=== PATIENT | male | born 1960 | race African-American/Black ===

== ENCOUNTER 2016-08-05 10:28 | Emergency (ER) | payer MEDICARE, OTHER ==
[~2016-08-05] VITALS: Ht 162.6 cm; Wt 84.4 kg
[2016-08-05] MEDS ORDERED: METF-699 PO (11:08)
[2016-08-05] MEDS ORDERED: GLIP5TAB8 PO (11:08)
[2016-08-05] MEDS ORDERED: VALI5TAB PO (11:08)
[2016-08-05] MEDS ORDERED: ZANTTAB PO (11:08)
[2016-08-05] MEDS ORDERED: PLAV75TA38 PO (11:08)
[2016-08-05] MEDS ORDERED: CARV6.25 PO (11:08)
[2016-08-05] MEDS ORDERED: NITR3TA SL (11:08)
[2016-08-05] MEDS ORDERED: RANI15ELUD PO (11:08)
[2016-08-05] MEDS ORDERED: ASPI81TA21 PO (11:08)
[2016-08-05] MEDS ORDERED: TYLE325T5 PO (11:08)
[2016-08-05] MEDS ORDERED: CYCL5TA PO (11:08)
[2016-08-05] MEDS ORDERED: ISOS20TA PO (11:08)
[2016-08-05] MEDS ORDERED: PERI4TAB PO (11:08)
[2016-08-05] MEDS ORDERED: LIPI80TA PO (11:08)
[2016-08-05 12:24] LABS: ADD MORPHOLOGY? YES; BASO % 0.5 % (0.0-1.0); EOS # 0.4 K/mm3 (0.0-0.50); EOS % 3.7 % (0.0-3.0); LARGE UNSTAINED CELL # 0.1 K/mm3 (0.0-0.4); LARGE UNSTAINED CELL % 0.9 % (0.0-4.0); LYMPH # 2.1 K/mm3 (1.5-4.5); LYMPH % 16.9 % (24.0-44.0); MEAN CORPUSCULAR HEMOGLOBIN 21.1 pg (27.0-33.0); MEAN CORPUSCULAR HGB CONC 28.6 g/dl (32.0-36.5); MEAN CORPUSCULAR VOLUME 73.9 fl (80.0-96.0); MONO # 0.7 K/mm3 (0.0-0.8); MONO % 5.5 % (0.0-5.0); NEUTROPHILS # 8.5 K/mm3 (1.8-7.7); NEUTROPHILS % 72.5 % (36.0-66.0); PLATELET COUNT, AUTOMATED 488 k/mm3 (150-450); RED CELL DISTRIBUTION WIDTH 18.2 % (11.5-14.5); WHITE BLOOD COUNT 11.8 K/mm3 (4.0-10.0)
[2016-08-05 12:38] LABS: ANION GAP 9 MEQ/L (8-16); BLOOD UREA NITROGEN 8 MG/DL (7-18); CARBON DIOXIDE LEVEL 26 MEQ/L (21-32); CHLORIDE LEVEL 102 MEQ/L (98-107); CREATININE FOR GFR 0.73 MG/DL (0.70-1.30); GLOMERULAR FILTRATION RATE > 60.0 (>56); GLUCOSE, FASTING 75 MG/DL (70-105); POTASSIUM SERUM 4.1 MEQ/L (3.5-5.1); SODIUM LEVEL 137 MEQ/L (136-145); URIC ACID 6.6 MG/DL (3.5-7.2)
--- NOTE | 2016-08-05 12:41 | REP ---
Left lower extremity Duplex Doppler venous ultrasound: Real time compression and duplex Doppler interrogation of the left lower extremity deep venous system is performed. The left common femoral, superficial femoral and popliteal veins are fully compressible with transducer pressure and demonstrate normal spontaneous and phasic flow, without evidence of deep venous thrombosis. Impression: No evidence of deep venous thrombosis of the left lower extremity femoral popliteal venous system. Signed by Charli Somers MD 08/05/2016 12:32 P
[2016-08-05 13:14] LABS: OVALOCYTES 1+; POIKILOCYTOSIS 1+
[2016-08-05 13:15] LABS: ANISOCYTOSIS 2+; HYPOCHROMASIA 2+; MICROCYTOSIS 2+
[2016-08-05] MEDS ORDERED: ULTR50TA PO (13:59)
[2016-08-05] MEDS ORDERED: BACT800T5 PO (13:59)
[2016-08-05 14:12] VITALS: BP 118/55
== END 2016-08-05 14:14 | disposition home or self-care (01) ==
LOC: M ED 13:14
DX: M79.672 Pain in left foot (principal); M25.572 Pain in left ankle and joints of left foot; I10 Essential (primary) hypertension; E11.9 Type 2 diabetes mellitus without complications; K59.00 Constipation, unspecified; F41.9 Anxiety disorder, unspecified; Z86.73 Personal history of transient ischemic attack (TIA), and cerebral infarction without residual deficits; Z79.899 Other long term (current) drug therapy; Z79.01 Long term (current) use of anticoagulants; Z79.82 Long term (current) use of aspirin; Z79.84 Long term (current) use of oral hypoglycemic drugs; Z88.0 Allergy status to penicillin

== ENCOUNTER 2016-08-07 10:01 | Inpatient (IN) | payer MEDICARE ==
[~2016-08-07] VITALS: Ht 162.6 cm; Wt 83.0 kg
[~2016-08-07 10:01] MED LIST: ASPI81TA21 PO; BACT800T5 PO; CARV6.25 PO; CYCL5TA PO; GLIP5TAB8 PO; ISOS20TA PO; LIPI80TA PO; METF-699 PO; NITR3TA SL; PERI4TAB PO; PLAV75TA38 PO; RANI15ELUD PO; TYLE325T5 PO; ULTR50TA PO; VALI5TAB PO; ZANTTAB PO
[2016-08-07] MEDS ORDERED: PLAV75TA38 PO (10:21)
[2016-08-07] MEDS ORDERED: VALI5TAB PO (10:21)
[2016-08-07] MEDS ORDERED: LIPI80TA PO (10:21)
[2016-08-07] MEDS ORDERED: PERCOCET 5MG/325MG TAB PO ONE (12:00)
[2016-08-07] MEDS ORDERED: CLINDAMYCIN 900 MG in APPROPRIATE DILUENT 1 EA IV ONE (12:00)
--- NOTE | 2016-08-07 12:28 | REP ---
Chest two views HISTORY: S I R S Comparison: None The lungs are clear. The heart is normal in size. The pulmonary vasculature is normal in appearance. The bony structure is intact. IMPRESSION: No acute disease. Signed by Rafy Rodríguez MD 08/07/2016 12:19 P
[2016-08-07 12:41] LABS: BASO % 0.2 % (0.0-1.0); EOS # 0.4 K/mm3 (0.0-0.50); EOS % 2.4 % (0.0-3.0); LARGE UNSTAINED CELL # 0.2 K/mm3 (0.0-0.4); LARGE UNSTAINED CELL % 1.3 % (0.0-4.0); LYMPH # 2.2 K/mm3 (1.5-4.5); LYMPH % 11.8 % (24.0-44.0); MEAN CORPUSCULAR HEMOGLOBIN 21.5 pg (27.0-33.0); MEAN CORPUSCULAR HGB CONC 28.9 g/dl (32.0-36.5); MEAN CORPUSCULAR VOLUME 74.4 fl (80.0-96.0); MONO # 0.9 K/mm3 (0.0-0.8); MONO % 5.6 % (0.0-5.0); NEUTROPHILS # 13.1 K/mm3 (1.8-7.7); NEUTROPHILS % 78.7 % (36.0-66.0); PLATELET COUNT, AUTOMATED 491 k/mm3 (150-450); RED CELL DISTRIBUTION WIDTH 18.1 % (11.5-14.5); WHITE BLOOD COUNT 16.6 K/mm3 (4.0-10.0)
[2016-08-07 13:02] LABS: ALBUMIN 3.9 GM/DL (3.2-5.2); ALBUMIN/GLOBULIN RATIO 1.08 (1.00-1.93); ALKALINE PHOSPHATASE 98 U/L (45-117); ALT/SGPT 23 U/L (12-78); ANION GAP 7 MEQ/L (8-16); AST/SGOT 17 U/L (15-37); BILIRUBIN,DIRECT 0.2 MG/DL (0.0-0.2); BILIRUBIN,TOTAL 0.7 MG/DL (0.2-1.0); BLOOD UREA NITROGEN 10 MG/DL (7-18); CALCIUM LEVEL 9.1 MG/DL (8.5-10.1); CARBON DIOXIDE LEVEL 29 MEQ/L (21-32); CHLORIDE LEVEL 100 MEQ/L (98-107); CREATININE FOR GFR 1.01 MG/DL (0.70-1.30); GLOMERULAR FILTRATION RATE > 60.0 (>56); GLUCOSE, FASTING 74 MG/DL (70-105); POTASSIUM SERUM 4.1 MEQ/L (3.5-5.1); SODIUM LEVEL 136 MEQ/L (136-145); TOTAL PROTEIN 7.5 GM/DL (6.4-8.2)
--- NOTE | 2016-08-07 14:04 | REP ---
LEFT FOOT, FOUR VIEWS: HISTORY: Osteomyelitis. There is no acute fracture or dislocation. There is narrowing of the interphalangeal joint space of the first digit with associated osteophyte formation. IMPRESSION: Degenerative change as described above. Signed by Rafy Rodríguez MD 08/07/2016 02:04 P
[2016-08-07] MEDS ORDERED: ONDANSETRON 4MG/2ML VIAL (J2405) IV PRN (14:15)
[2016-08-07] MEDS ORDERED: ACETAMINOPHEN TAB 650MG DOSE (2X325MG) PO PRN (14:15)
[2016-08-07] MEDS ORDERED: ASPI325T PO (14:18)
[2016-08-07] MEDS ORDERED: BACT800T5 PO (14:18)
[2016-08-07] MEDS ORDERED: ACET-654 PO (14:18)
[2016-08-07] MEDS ORDERED: GLIP5TAB15 PO (14:18)
[2016-08-07] MEDS ORDERED: LISI10TA2 PO (14:19)
[2016-08-07] MEDS ORDERED: ALBUTEROL SULFATE 2.5 MG/0.5 ML INH NEB SOLN INH PRN (15:30)
[2016-08-07] MEDS ORDERED: DEXTROSE 50% 50 ML SYRINGE IV PRN (15:30)
[2016-08-07] MEDS ORDERED: GLUCOSE 4 GM CHEW TABLET PO PRN (15:30)
[2016-08-07] MEDS ORDERED: GLUCAGON FOR INJ 1 MG VIAL (J1610) SC PRN (15:30)
[2016-08-07] MEDS ORDERED: diazePAM 5 MG TAB PO PRN (15:45)
--- NOTE | 2016-08-07 16:48 | PHACANCOPD ---
PHARMACY VANCOMYCIN DOSING Pt Demographics Demographics Patient Age:55 , Weight: , Gender: male Adjusted Body Weight Date: 08/07/16, Adjusted Body Weight: [69.3] Kg Events Past 24 Hours Events Past 24 Hours: NO: Change in CrCl, Dialysis, Diuretic Therapy, Elevation in WBC, Fever, Other, Pending Diagnostics, Pending Procedures Vancomycin Vancomycin indication: DIABETIC FOOT Vancomycin Target Ranges: 10-20 mcg/ml Vancomycin Load Y/N: Yes Load Dose Date Time Vancomycin Load Dose: 2G Date: 08/07/16 Time: 17:00 Vancomycin Dose Date: 08/07/16. Current Vancomycin Dose: [1G q12H @05] Intermittent Dosing?: No Labs Micro Microbiology 08/07/16 Blood Culture, Received Pending 08/07/16 Blood Culture, Received Pending Creatinine Clearance Date:08/07/16. Creatinine Clearance: [67.6ML/MIN.]. Pending Labs B/C PENDING Assessment and Plan Maintaining Current Dose?: Yes Reason for dose change: No Dose Change Pharmacist Note Pharmacist Note Date: 08/07/16. Pharmacist note: Pt is a 62 y/o male pt who is being treated for diabetic foot target trough of 10-20mcg/ml. Pt does not have a history of previous treatment with vancomycin at [facility]. To achieve target a loading dose of 2gs was given at 1700 to be followed with a maintenance therapy of 1g q12h. We will continue to monitor pt and adjust dose as needed. ROC[facility] Aug 07, 2016 16:48
--- NOTE | 2016-08-07 17:05 | HPE ---
DATE OF ADMISSION: 08/07/2016 CHIEF COMPLAINT: "My foot." SUMMARY OF PRESENTATION: This is a 55-year-old who noticed swelling in his foot on the evening of the , it was worse on Wednesday when a blister appeared on his second toe. On , 08/06/2016, the surrounding area became red. He has had numbness in his toes, which is new. He did go to the emergency department on 08/05/2016, which was Wednesday. He was prescribed Bactrim and took it as directed. Went to see his primary care doctor today and was sent immediately in. In the primary care office, a line was drawn on his foot to indicate the area of erythema. He has had no fever. No chills. PAST MEDICAL HISTORY: Notable for: 1. Smoking for 25 years, quit 1 year ago. 2. Coronary artery disease, followed by Dr. Fox. Last stress test was apparently last year. 3. Hyperlipidemia. 4. Diabetes. 5. Gout. 6. Sleep apnea, which has been diagnosed but has not been titrated for bilevel positive airway pressure (BIPAP). 7. Chronic pain. 8. Borderline glaucoma. SURGICAL HISTORY: Notable for: 1. Open heart surgery in 2003 with quadruple bypass. 2. Stent placement in 2004 and 2005. 3. Pins placed in his right arm in 1997. SOCIAL HISTORY: He is with three children. Retired from the [employer]. Is originally from the [facility]. ALLERGIES: Listed to AMOXICILLIN. MEDICATIONS: At home include: - Lisinopril/hydrochlorothiazide 10/12.5 mg one tablet daily - Coreg 6.25 mg daily - isosorbide mononitrate 10 mg twice a day - Aceon 4 mg at bedtime - Plavix 75 mg daily - aspirin 325 mg daily - sublingual nitroglycerin as needed for chest pain - Valium at night as needed for anxiety - atorvastatin 80 mg by mouth daily - metformin 500 mg by mouth extended release daily - glimepiride 5 mg daily - diazepam 5 mg as needed - Zantac 150 mg by mouth daily - Flexeril 10 mg three times a day as needed FAMILY HISTORY: Notable for diabetes, heart disease, cancer, kidney disease, and hypertension. REVIEW OF SYSTEMS: Notable for no fever. No chills. No headache. No visual changes. He has had cough, which has been chronic since quitting smoking. No neck pain. Exercise tolerance is that he is able to walk 3 kilometers before he gets short of breath. He does walk quite a bit. He believes his shortness of breath is related to his lungs. He has not experienced chest pain. No abdominal pain. He does have nocturia chronically. No focal weakness. No history of seizures. Otherwise, unremarkable. PHYSICAL EXAMINATION: Temperature is 98.1, pulse 76, blood pressure 115/65, 97% on room air, respiratory rate is 18. He is awake, appropriately interactive, pleasantly conversant. Head is normocephalic. Sinuses are nontender. Pupils are equal, round and reactive. Anicteric. Nasal septum is midline. He is wearing corrective lenses. He has exceedingly poor dentition. NECK: Supple. Thick. LUNGS: Breathing is symmetrically diminished. I:E ratio is 1:4. Decreased aeration throughout. No wheezes, rales or rhonchi. HEART: Distant sounding. Normal S1, S2. Midline sternal scar. Radial pulses are 2+. Dorsalis pedis pulses are 2+ bilaterally. Capillary refill is less than 2 seconds. ABDOMEN: Somewhat distended. Soft, doughy. Hypoactive bowel sounds. EXTREMITIES: He is moving all four extremities. There are no lesions noted on the right foot. The left foot is notable that on the second toe on the left there is an area of erythema and swelling that is marked with a pen line. There is clear demarcation. Sensation is grossly intact. White cell count is 16.6, hemoglobin 9.5, and platelets of 491. Sodium is 136, potassium 4.1, chloride 100, carbon dioxide 29, BUN 10, creatinine 1.01, lactic acid 1.5, total bilirubin 0.7, direct bilirubin 0.2, albumin 3.9. C-reactive protein is ordered. There is no EKG for me to review. Chest x-ray shows no acute disease. ASSESSMENT: This is a 55-year-old with left sided diabetic foot and superimposed cellulitis, possible osteomyelitis. PLAN: 1. Infectious disease. The patient will be started on broad spectrum antibiotics. Cultures have been sent from blood. We will order a MRI of the foot to assess for underlying issues. Consultation from podiatry or general surgery as available and will be ordered for possible debridement and/or surgical correction. 2. Cardiovascular. The patient had a recent stress test. We will obtain stress test results from Dr. Fox' office. We will need to hold aspirin and Plavix pending possible need for surgical intervention. We will continue his antihypertensives with hold parameters. Continue his treatment for hyperlipidemia. 3. The patient has diabetes. Will be placed on insulin during his stay and diabetic diet. 4. The patient has a history of sleep apnea. If he needs pain management or OR stay, he will require sleep apnea protocol. 5. The patient has a history of borderline glaucoma. 6. The patient has anemia. We will check iron studies. MCV is 74. We will check stool occult.
[2016-08-07 18:00] VITALS: BP 145/70
[2016-08-07] MEDS ORDERED: VANCOMYCIN HCL 1,000 MG, VIAL MATE ADAPTER 1 EACH in D5W 250 ML IV ONE (18:00)
--- NOTE | 2016-08-07 18:35 | REP ---
MRI LEFT FOOT WITH AND WITHOUT CONTRAST: TECHNIQUE: Axial T1, STIR, coronal T1, STIR, sagittal STIR, axial T1 fat sat, post-IV gadolinium, T1 fat sat all three planes with the intravenous administration of 16 mL gadolinium. There is superficial soft-tissue edema in the dorsal soft-tissues of the foot. There is mild ill-defined enhancement of these soft-tissue compatible with cellulitis. No fluid collection or abscess is seen. Underlying osseous structures demonstrate no evidence of osteomyelitis. There is mild subchondral marrow edema in the navicular bone laterally secondary to arthritic changes. No joint effusion is seen. No tenosynovitis is seen. Visualized tendons appear intact. IMPRESSION: Dorsal soft-tissue cellulitis without evidence of osteomyelitis or abscess. Signed by Charli Somers MD 08/07/2016 08:38 P
[2016-08-07] MEDS: ENOXAPARIN 40 MG/0.4 ML SYRINGE (J1650) SC SCH (18:54)
[2016-08-07] MEDS: HumaLOG INSULIN (NovoLOG) PER UNIT SC SCH ×2 (18:55→21:00)
[2016-08-07] MEDS: VANCOMYCIN HCL 1,000 MG, VIAL MATE ADAPTER 1 EACH in D5W 250 ML IV SCH (19:03)
[2016-08-07 22:00] VITALS: BP 140/65
[2016-08-07] MEDS: MEROPENEM INJ 1 GM in D5W MINI-BAG PLUS 100 ML IV SCH (22:53)
[2016-08-08] MEDS: MEROPENEM INJ 1 GM in D5W MINI-BAG PLUS 100 ML IV SCH ×3 (03:36→21:15)
[2016-08-08] MEDS: VANCOMYCIN HCL 1,000 MG, VIAL MATE ADAPTER 1 EACH in D5W 250 ML IV SCH ×2 (05:16→17:32)
[2016-08-08 06:00] VITALS: BP 131/62
[2016-08-08] MEDS: ISOSORBIDE MON. (ISMO,MONOKET) 20 MG TAB PO SCH ×2 (06:04→14:43)
[2016-08-08 07:04] LABS: ALBUMIN 3.3 GM/DL (3.2-5.2); ALBUMIN/GLOBULIN RATIO 0.89 (1.00-1.93); ALKALINE PHOSPHATASE 92 U/L (45-117); ALT/SGPT 22 U/L (12-78); ANION GAP 8 MEQ/L (8-16); AST/SGOT 16 U/L (15-37); BILIRUBIN,TOTAL 0.3 MG/DL (0.2-1.0); BLOOD UREA NITROGEN 11 MG/DL (7-18); CALCIUM LEVEL 8.6 MG/DL (8.5-10.1); CARBON DIOXIDE LEVEL 25 MEQ/L (21-32); CHLORIDE LEVEL 103 MEQ/L (98-107); CREATININE FOR GFR 0.88 MG/DL (0.70-1.30); GLOMERULAR FILTRATION RATE > 60.0 (>56); GLUCOSE, FASTING 152 MG/DL (70-105); MAGNESIUM LEVEL 2.2 MG/DL (1.8-2.4); POTASSIUM SERUM 4.1 MEQ/L (3.5-5.1); SODIUM LEVEL 136 MEQ/L (136-145)
[2016-08-08 07:10] LABS: PERCENT SATURATION 3.7 % (19.7-37.4)
[2016-08-08 07:23] LABS: MEAN CORPUSCULAR HEMOGLOBIN 21.5 pg (27.0-33.0); MEAN CORPUSCULAR HGB CONC 28.7 g/dl (32.0-36.5); PLATELET COUNT, AUTOMATED 477 k/mm3 (150-450); RED CELL DISTRIBUTION WIDTH 17.9 % (11.5-14.5); WHITE BLOOD COUNT 14.9 K/mm3 (4.0-10.0)
[2016-08-08 08:00] LABS: ANISOCYTOSIS 1+; EOSINOPHILS 1 % (0-5); HYPOCHROMASIA 2+; MICROCYTOSIS 2+; OVALOCYTES 1+
[2016-08-08] MEDS: ATORVASTATIN 20 MG TAB PO SCH (08:19)
[2016-08-08] MEDS: LISINOPRIL 10 MG TAB PO SCH (08:19)
[2016-08-08] MEDS: CARVedilol 6.25 MG TAB PO SCH (08:19)
[2016-08-08] MEDS: ENOXAPARIN 40 MG/0.4 ML SYRINGE (J1650) SC SCH (08:19)
[2016-08-08] MEDS: HumaLOG INSULIN (NovoLOG) PER UNIT SC SCH ×4 (08:20→21:00)
--- NOTE | 2016-08-08 10:33 | IPN ---
DATE OF SERVICE: 08/08/2016 A 55-year-old gentleman admitted last evening for cellulitis and diabetic foot infection. He has not had any problems overnight. He remains afebrile and feels that the foot pain swelling and erythema is much improved. OBJECTIVE: Temperature is 98.6, pulse 87, respiratory rate is 18, blood pressure (BP) 131/62, SpO2 is 99% on room air. General: The patient appears to be in no acute distress. He is alert, pleasant. HEENT: Unremarkable. Lungs: Clear. Heart: Regular rate and rhythm. Abdomen: Soft. Extremities: No edema. The dorsum of the right foot involving the second and third digit and across the dorsum of the lower portion of the foot shows less erythema than what was marked previously. His pulses are intact with good bounding pulses of both the dorsalis pedis and posterior tibialis bilaterally. No calf tenderness. LABORATORY DATA: White count is 14.9 down from 16.6, hemoglobin 8.9, platelets 477. Sodium 136, potassium 4.1, chloride 103, bicarbonate 25, anion gap 8, BUN is 11, creatinine 0.88, glucose 152. Iron studies show a low serum iron of 15, TIBC 402, transferrin is 3.7, ferritin is 8, total bilirubin is 0.3, B12 and folic acid is pending at this time, albumin is 3.3. ASSESSMENT AND PLAN: 1. Cellulitis of the right foot. Will continue with broad-spectrum antibiotics as indicated previously. Cultures are pending. MRI of the foot that was performed yesterday: dorsal soft tissue cellulitis with no evidence of osteomyelitis or abscess. Currently, we are waiting for a podiatry consult. 2. Diabetes. Continue with fingersticks and sliding scale coverage and consistent-carbohydrate diet. 3. History of coronary artery disease. Last stress test was a year ago. He is having no issues currently. Will continue to follow. 4. Hyperlipidemia. Continue statin therapy. 5. Hypertension. Continue on Coreg. Blood pressure medications with hold parameters. 6. Gastroesophageal reflux disease (GERD). Continue Zantac. 7. History of anxiety. Continue diazepam as needed. 8. Chronic back pain. Continue with Flexeril. 9. Deep venous thrombosis (DVT) prophylaxis with Lovenox. DISPOSITION: Anticipate the patient to be here perhaps through the day today. Continue antibiotics as outlined. Appreciate podiatry's input.
[2016-08-08 14:00] VITALS: BP 111/52
[2016-08-08 22:00] VITALS: BP 137/70
[2016-08-09] MEDS: MEROPENEM INJ 1 GM in D5W MINI-BAG PLUS 100 ML IV SCH ×2 (03:59→11:19)
[2016-08-09] MEDS: VANCOMYCIN HCL 1,000 MG, VIAL MATE ADAPTER 1 EACH in D5W 250 ML IV SCH (05:56)
[2016-08-09 06:00] VITALS: BP 132/62
[2016-08-09 06:33] LABS: BASO % 0.3 % (0.0-1.0); EOS # 0.3 K/mm3 (0.0-0.50); EOS % 2.9 % (0.0-3.0); LARGE UNSTAINED CELL # 0.3 K/mm3 (0.0-0.4); LARGE UNSTAINED CELL % 3.4 % (0.0-4.0); LYMPH # 1.7 K/mm3 (1.5-4.5); LYMPH % 18.2 % (24.0-44.0); MEAN CORPUSCULAR HEMOGLOBIN 21.7 pg (27.0-33.0); MEAN CORPUSCULAR HGB CONC 29.3 g/dl (32.0-36.5); MONO # 0.6 K/mm3 (0.0-0.8); MONO % 6.4 % (0.0-5.0); NEUTROPHILS # 6.3 K/mm3 (1.8-7.7); NEUTROPHILS % 68.7 % (36.0-66.0); PLATELET COUNT, AUTOMATED 461 k/mm3 (150-450); RED CELL DISTRIBUTION WIDTH 17.9 % (11.5-14.5); WHITE BLOOD COUNT 9.1 K/mm3 (4.0-10.0)
[2016-08-09 06:50] LABS: ALBUMIN 3.3 GM/DL (3.2-5.2); ALBUMIN/GLOBULIN RATIO 1.03 (1.00-1.93); ALKALINE PHOSPHATASE 86 U/L (45-117); ALT/SGPT 25 U/L (12-78); ANION GAP 7 MEQ/L (8-16); AST/SGOT 19 U/L (15-37); BILIRUBIN,TOTAL 0.5 MG/DL (0.2-1.0); BLOOD UREA NITROGEN 10 MG/DL (7-18); CALCIUM LEVEL 8.8 MG/DL (8.5-10.1); CARBON DIOXIDE LEVEL 25 MEQ/L (21-32); CHLORIDE LEVEL 105 MEQ/L (98-107); CREATININE FOR GFR 0.74 MG/DL (0.70-1.30); GLOMERULAR FILTRATION RATE > 60.0 (>56); GLUCOSE, FASTING 109 MG/DL (70-105); MAGNESIUM LEVEL 2.2 MG/DL (1.8-2.4); POTASSIUM SERUM 4.4 MEQ/L (3.5-5.1); SODIUM LEVEL 137 MEQ/L (136-145); TOTAL PROTEIN 6.5 GM/DL (6.4-8.2)
[2016-08-09] MEDS: ISOSORBIDE MON. (ISMO,MONOKET) 20 MG TAB PO SCH (06:50)
[2016-08-09] MEDS: HumaLOG INSULIN (NovoLOG) PER UNIT SC SCH ×2 (07:13→11:58)
[2016-08-09 08:27] VITALS: BP 132/62
[2016-08-09] MEDS: LISINOPRIL 10 MG TAB PO SCH (08:27)
[2016-08-09] MEDS: ATORVASTATIN 20 MG TAB PO SCH (08:27)
[2016-08-09] MEDS: CARVedilol 6.25 MG TAB PO SCH (08:27)
[2016-08-09] MEDS: ENOXAPARIN 40 MG/0.4 ML SYRINGE (J1650) SC SCH (08:27)
--- NOTE | 2016-08-09 09:08 | IPN ---
DATE: 08/09/2016 A 55-year-old gentleman seen at bedside. No overnight issues reported. He denies chest pain, shortness breath, productive sputum, nausea or vomiting. He feels that his pain in the foot does appear to be doing much better. He did inform me that Dr. Tomas did pieter the area on the distal portion of the left second toe. He has remained afebrile. OBJECTIVE: VITAL SIGNS: Temperature is 96.9, pulse 66, respiratory rate 18, blood pressure 132/62, SPO2 is 98% on room air. GENERAL: The patient appears to be in no acute distress. He es alert and oriented. HEENT: Unremarkable. LUNGS: Clear. HEART: Regular rate and rhythm. ABDOMEN: Soft. EXTREMITIES: No edema. No calf tenderness. The examination of the left foot does show resolution of the erythema on the dorsum of the foot. He does have some mild purulent drainage from the wound site on the distal toe just proximal to the nailbed. Pulses were equal distally. LABORATORY DATA: White count is 9.1, hemoglobin is 9.4, platelets are 461,000. Sodium 137, potassium 4.4, chloride 105, bicarbonate 25, anion gap 7, BUN 10, creatinine 0.74, glucose 109, calcium 8.8, magnesium 2.2. ASSESSMENT AND PLAN: 1. Cellulitis of the left foot. Continue with broad-spectrum antibiotics, currently on meropenem and vancomycin. He does have an allergy to penicillin. No evidence of osteomyelitis on MRI. Awaiting Dr. Tomas's further recommendations. 2. Diabetes. Continue fingersticks before meals and at bedtime with sliding scale coverage and consistent-carbohydrate diet. 3. History of coronary artery disease. His last stress test was a year ago. No current issues. 4. Hyperlipidemia. Continue statin therapy. 5. Hypertension. Continue on Coreg with hold parameters. 6. Gastroesophageal reflux disease (GERD). Continue Zantac. 7. Anxiety. Continue diazepam as needed. 8. Chronic back pain. Continue on Flexeril. 9. Deep vein thrombosis (DVT) prophylaxis. On Subcutaneous Lovenox. DISPOSITION: The patient does appear to be doing well today. Appreciate podiatry's input as far as de-escalating his antibiotic therapy and wound cultures are pending.
[2016-08-09] MEDS ORDERED: KEFL500C7 PO (13:08)
--- NOTE | 2016-08-09 13:43 | DSES ---
DATE OF ADMISSION: 08/07/2016 DATE OF DISCHARGE: 08/09/2016 PRIMARY CARE PROVIDER: Kathy Gill. CONSULTATIONS: Dr. Dima Tomas, left second digit on the left foot. COMPLICATIONS: None. ADMISSION/DISCHARGE DIAGNOSES: 1. Cellulitis and diabetic foot involving the left foot second toe. 2. Diabetes. 3. Hyperlipidemia. 4. Gout. 5. Obstructive sleep apnea on BiPAP. 6. Chronic low back pain. 7. History of coronary artery disease. BRIEF HOSPITAL COURSE: Mr. Hyde is a pleasant 55-year-old gentleman with known history of diabetes who presented to the emergency department 08/07/2016 after having three or four days of left foot pain, redness, numbness, had been seen at his primary care provider's office, initially prescribed Bactrim, and had a surgical pen outlining the border of the infected area. At any rate, he presented to the emergency department with worsening symptoms, again no fever. He did have a white count of 16,000. Electrolytes were unremarkable. C-reactive protein slightly elevated but a normal lactate. His other workup was unremarkable. MRI of the foot was negative for any osteomyelitis. Dr. Tomas of podiatry was consulted and did feel that there was a small areas on the dorsal surface of the left second digit of the foot that did require incision and drainage procedure. This does appear to be draining well today. The erythema of the foot and toe has almost completely dissipated. His white count has normalized. He has remained afebrile and his gram stain was positive for group A Streptococcus. VITAL SIGNS: Temperature 96.9, pulse 66, respiratory rate 18, blood pressure 132/62, SpO2 is 98% on room air. GENERAL: The patient appears to be in no acute distress, alert. HEENT: Unremarkable. LUNGS: Clear. HEART: Regular rhythm. ABDOMEN: Soft. EXTREMITIES: As indicated above. He does have good granulation healing of the wound site. DISCHARGE CONDITION: Good. DISPOSITION: Discharged home. DISCHARGE MEDICATIONS - Keflex 500 mg twice a day for 14 days - Tylenol 650 mg every 4 hours as needed - aspirin 325 mg daily - Lipitor 80 mg daily - carvedilol 6.25 mg daily - Plavix 75 mg daily - Flexeril 10 mg three times a day as needed - Valium 5 mg at bedtime as needed - glipizide ER 5 mg daily - isosorbide mononitrate 20 mg twice a day - lisinopril/hydrochlorothiazide 10/12.5 mg daily - metformin 500 mg at bedtime - nitroglycerin sublingual 0.3 mg sublingually as directed as needed - perindopril 4 mg at bedtime - Zantac 150 mg daily DISCHARGE INSTRUCTIONS: Discharge to home. Activity as tolerated. He is instructed to keep the wound site clean, to wash it daily with warm soapy water and change dressings daily. Should followup with his primary care provider at [facility] in a week or two. He should see Dr. Tomas this coming week. He should seek medical attention if symptoms should worsen or progress. He voices understanding. Discharge took approximately 35 minutes.
--- NOTE | 2016-08-09 20:20 | CR ---
DATE OF CONSULTATION: 08/08/2016 Benitez Hyde is a 62-year-old male, who presented to [facility] with worsening condition of his left second toe. He states he noted it on Wednesday last week when he woke up and noted a blister on his toe. On , he went to the emergency room (ER) and was discharged on Bactrim. He went to his primary care doctor on Wednesday, who noticed worsening of the redness to his foot and he was again sent to the emergency room where he has been admitted. He states he has quite a bit of pain in his toes though it is somewhat better since receiving antibiotics from yesterday. PAST MEDICAL HISTORY: Significant for coronary artery disease, history of smoking 25 years, hyperlipidemia, diabetes, gout, sleep apnea. PAST SURGICAL HISTORY: Quadruple bypass in 2003 with stent placement in 2004 and 2005. He had right arm surgery in 1997. SOCIAL HISTORY: Former smoker. ALLERGIES: To AMOXICILLIN. HOME MEDICATIONS: - lisinopril - hydrochlorothiazide - Coreg - isosorbide mononitrate - Plavix - aspirin - valium - atorvastatin - Aceon - metformin - glimepiride - diazepam - Zantac - Flexeril FAMILY HISTORY: Noncontributory. REVIEW OF SYSTEMS: Denies nausea, vomiting, fever or chills. VITAL: Afebrile over 24 hours. Current temperature is 98.6. Other vitals are stable. LABORATORY: White blood cell count on admission was 16.6, is down to 14.9 today. C-reactive protein (CRP) is 5.19. Imaging studies are reviewed. X-ray showed no signs of soft tissue emphysema or osteomyelitis. The foot Magnetic Resonance Imaging (MRI) shows no obvious signs of osteomyelitis, generalized edema noted with fluid collection of the dorsum second toe. LOWER EXTREMITY EXAM: Pulses are palpable. Gross sensation is intact. There is a lucent area over the left second toe, distal interphalangeal joint (DIPJ) with an erythema extended from this proximal. Erythema extends to the base of the second toe with some mild erythema extending past this, but it does seem improved from the prior demarcation line. No other obvious open sores or areas of great pain. ASSESSMENT: This 55-year-old diabetic male with local abscess of cellulitis, left second toe. PLAN: Bedside incision and drainage performed. #15 blade was used to incised the blistered area over the second toe. Approximately, 1 mL of purulent material was expressed from this. A culture swab was taken for aerobic cultures and Gram-stain. Gauze dressing will be applied daily. Continue current antibiotics. He is on vancomycin and meropenem. Presently, await culture results for speciation. Will continue to follow.
[2016-08-10 16:51] LABS: FOLATE 12.5 NG/ML (>5.4)
== END 2016-08-09 13:48 | disposition home or self-care (01) | DRG 638 ==
LOC: EDBD 10:01 → M ED 10:22 → M ED INP 14:03 → M MS5PR 18:28
PROVIDERS: ADMIT Internal Medicine; ATTEND Hospitalist
PROC: 0H9NXZX Drainage of Left Foot Skin, External Approach, Diagnostic (ICD-10-PCS; principal; 2016-08-08)
DX: E11.628 Type 2 diabetes mellitus with other skin complications (principal); L03.116 Cellulitis of left lower limb; E78.5 Hyperlipidemia, unspecified; M10.9 Gout, unspecified; G47.33 Obstructive sleep apnea (adult) (pediatric); M54.5 Low back pain; H40.009 Preglaucoma, unspecified, unspecified eye; L03.032 Cellulitis of left toe; I10 Essential (primary) hypertension; F41.9 Anxiety disorder, unspecified; B95.0 Streptococcus, group A, as the cause of diseases classified elsewhere; D64.9 Anemia, unspecified; K21.9 Gastro-esophageal reflux disease without esophagitis; I25.10 Atherosclerotic heart disease of native coronary artery without angina pectoris; Z79.84 Long term (current) use of oral hypoglycemic drugs; Z79.899 Other long term (current) drug therapy; Z79.02 Long term (current) use of antithrombotics/antiplatelets; Z99.89 Dependence on other enabling machines and devices; Z87.891 Personal history of nicotine dependence; Z95.1 Presence of aortocoronary bypass graft; Z88.1 Allergy status to other antibiotic agents; Z83.3 Family history of diabetes mellitus; Z82.49 Family history of ischemic heart disease and other diseases of the circulatory system; Z80.9 Family history of malignant neoplasm, unspecified; Z84.1 Family history of disorders of kidney and ureter

== ENCOUNTER 2017-07-21 07:04 | Day surgery (SDC) | payer MEDICARE, OTHER ==
[2017-07-21] MEDS: NS 1,000 ML IV (07:30)
[2017-07-21] MEDS ORDERED: LIDOCAINE 2% INJ 100 MG/5 ML SDV (FOR ANES.) As Ordered (08:01)
[2017-07-21] MEDS ORDERED: PROPOFOL 200 MG/20 ML VIAL As Ordered (08:01)
== END 2017-07-21 09:21 | disposition home or self-care (01) ==
LOC: M OPP 07:04
DX: Z12.11 Encounter for screening for malignant neoplasm of colon (principal); D12.5 Benign neoplasm of sigmoid colon; K57.30 Diverticulosis of large intestine without perforation or abscess without bleeding; K64.1 Second degree hemorrhoids; I10 Essential (primary) hypertension; I25.10 Atherosclerotic heart disease of native coronary artery without angina pectoris; Z95.5 Presence of coronary angioplasty implant and graft; E78.5 Hyperlipidemia, unspecified; Z95.0 Presence of cardiac pacemaker; Z95.1 Presence of aortocoronary bypass graft; E11.9 Type 2 diabetes mellitus without complications; R12 Heartburn; K21.9 Gastro-esophageal reflux disease without esophagitis; R06.02 Shortness of breath; R06.83 Snoring; Z88.0 Allergy status to penicillin; Z79.82 Long term (current) use of aspirin; Z79.899 Other long term (current) drug therapy; Z79.02 Long term (current) use of antithrombotics/antiplatelets; Z79.84 Long term (current) use of oral hypoglycemic drugs; Z87.891 Personal history of nicotine dependence
CPT/HCPCS: 45385

== ENCOUNTER → 2017-10-17 | Outpatient (CLI) | payer MEDICARE, OTHER | LOC: M SLEEP 20:00 | DX: G47.30 Sleep apnea, unspecified (principal) | CPT/HCPCS: 95810 ==

== ENCOUNTER → 2017-12-01 | Outpatient (CLI) | payer MEDICARE, OTHER ==
[~2017-12-01] MED LIST changes: -ASPI81TA21 PO; -BACT800T5 PO; -CARV6.25 PO; -CYCL5TA PO; -GLIP5TAB8 PO; -ISOS20TA PO; -LIPI80TA PO; -METF-699 PO; +METHACHOLINE KIT (J7674) INH; -NITR3TA SL; -PERI4TAB PO; -PLAV75TA38 PO; -RANI15ELUD PO; -TYLE325T5 PO; -ULTR50TA PO; -VALI5TAB PO; -ZANTTAB PO
== END ==
LOC: M CARPUL 10:25
DX: R40.0 Somnolence (principal)
CPT/HCPCS: J7674

== ENCOUNTER 2019-03-28 13:51 | Emergency (ER) | payer MEDICARE, OTHER ==
[~2019-03-28] VITALS: Ht 165.1 cm; Wt 79.8 kg
[~2019-03-28 13:51] MED LIST changes: +ACET1TAB55 PO; +ASPI-1 PO; +ASPI81TA21 PO; +BACT800T5 PO; +CARV6.25 PO; +CYCL5TAB PO; +GLIP5TAB20 PO; +GLIP5TAB8 PO; +ISOS20TA PO; +KEFL500C17 PO; +LIPI80TA PO; +LISI10TA15 PO; +METF-699 PO; -METHACHOLINE KIT (J7674) INH; +NITR0.3S SL; +PERI4TAB PO; +PLAV1TAB2 PO; +RANI75SY PO; +TYLE325T5 PO; +ULTR50TA8 PO; +VALI5TAB PO; +ZANT150T40 PO
[2019-03-28] MEDS ORDERED: NS 1,000 ML IV ONE (14:45)
[2019-03-28 15:00] LABS: BASO # 0.1 10^3/uL (0.0-0.2); BASO % 0.9 % (0.0-1.0); EOS # 0.2 10^3/uL (0.0-0.5); HEMOGLOBIN 12.6 g/dl (13.5-17.5); LYMPH # 2.4 10^3/uL (1.5-5.0); LYMPH % 24.2 % (24.0-44.0); MEAN CORPUSCULAR HEMOGLOBIN 27.8 pg (27.0-33.0); MEAN CORPUSCULAR HGB CONC 32.3 g/dl (32.0-36.5); MEAN CORPUSCULAR VOLUME 86.1 fl (80.0-96.0); MONO # 0.5 10^3/uL (0.0-0.8); MONO % 5.6 % (0.0-5.0); NEUTROPHILS # 6.5 10^3/uL (1.5-8.5); NEUTROPHILS % 66.7 % (36.0-66.0); PLATELET COUNT, AUTOMATED 391 10^3/uL (150-450); RED BLOOD COUNT 4.53 10^6/uL (4.30-6.10); WHITE BLOOD COUNT 9.7 10^3/uL (4.0-10.0)
[2019-03-28 15:29] LABS: ALBUMIN 3.8 GM/DL (3.2-5.2); ALT/SGPT 25 U/L (12-78); BILIRUBIN,DIRECT 0.2 MG/DL (0.0-0.2); BILIRUBIN,TOTAL 0.7 MG/DL (0.2-1.0); BLOOD UREA NITROGEN 13 MG/DL (7-18); CALCIUM LEVEL 9.2 MG/DL (8.8-10.2); CARBON DIOXIDE LEVEL 21 MEQ/L (21-32); CHLORIDE LEVEL 95 MEQ/L (98-107); CK-MB VALUE MASS 1.2 NG/ML (<3.6); CPK CREATINE PHOSPHOKINASE 58 U/L (39-308); CREATININE FOR GFR 0.96 MG/DL (0.70-1.30); GLOMERULAR FILTRATION RATE > 60.0 (>49); GLUCOSE, FASTING 448 MG/DL (70-100); LIPASE 231 U/L (73-393); MB/CK RELATIVE INDEX 2.07 (< OR =4); NT-PRO BNP 79 PG/ML (<125); POTASSIUM SERUM 4.7 MEQ/L (3.5-5.1); SODIUM LEVEL 129 MEQ/L (136-145); TOTAL PROTEIN 6.9 GM/DL (6.4-8.2); TROPONIN I < 0.02 NG/ML (< 0.10)
--- NOTE | 2019-03-28 15:29 | REP ---
Single view chest: 03/28/2019. Indication: Chest pain. Comparison: 08/07/2016. Findings: The lungs are clear. There is no pleural effusion or pneumothorax. The patient is status post median sternotomy. The cardiac silhouette is not enlarged. Impression: There is no evidence of acute cardiopulmonary process. Electronically Signed by Kuldip Kulkarni DO 03/28/2019 03:21 P
[2019-03-28] MEDS ORDERED: LEVEMIR (INSULIN DETEMIR) 1 UNITS/0.01ML SC ONE (18:45)
[2019-03-28 18:59] LABS: CK-MB VALUE MASS 1.2 NG/ML (<3.6); CPK CREATINE PHOSPHOKINASE 50 U/L (39-308); TROPONIN I < 0.02 NG/ML (< 0.10)
[2019-03-28 19:44] VITALS: BP 126/89
[2019-03-28 20:32] LABS: HEMOGLOBIN A1c 15.3 %
--- NOTE | 2019-03-29 00:57 | ECGEPIP ---
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
== END 2019-03-28 19:46 | disposition home or self-care (01) ==
LOC: M ED 13:51
DX: E11.65 Type 2 diabetes mellitus with hyperglycemia (principal); I25.2 Old myocardial infarction; I10 Essential (primary) hypertension; Z95.5 Presence of coronary angioplasty implant and graft; Z88.1 Allergy status to other antibiotic agents; Z79.4 Long term (current) use of insulin; Z79.899 Other long term (current) drug therapy

== ENCOUNTER 2020-07-12 10:31 | Emergency (ER) | payer MEDICARE, OTHER ==
[~2020-07-12] VITALS: Ht 162.6 cm; Wt 95.9 kg
[~2020-07-12 10:31] MED LIST changes: -METF-699 PO; +METF-817 PO
--- OUTSIDE RECORDS SUMMARY | 2020-07-12 10:39 | CCD ---
Author Author [facility] Organization [facility] Address Unknown Phone Unavailable Care Team Providers Care Community Relations Advisor Name Role Phone Lokesh, L Hannah PA Unavailable Unavailable Lokesh, L Hannah PA Unavailable Unavailable Lokesh, L Hannah PA Unavailable Unavailable Lokesh, L Hannah PA Unavailable Unavailable Lokesh, L Hannah PA Unavailable Unavailable Lokesh, L Hannah PA Unavailable Unavailable Lokesh, L Hannah PA Unavailable Unavailable Lokesh, L Hannah PA Unavailable Unavailable Lokesh, L Hannah PA Unavailable Unavailable Lokesh, L Hannah PA Unavailable Unavailable Lokesh, L Hannah PA Unavailable Unavailable Lokesh, L Hannah PA Unavailable Unavailable Lokesh, L Hannah PA Unavailable Unavailable Lokesh, L Hannah PA Unavailable Unavailable Lokesh, L Hannah PA Unavailable Unavailable Lokesh, L Hannah PA Unavailable Unavailable Lokesh, L Hannah PA Unavailable Unavailable Lokesh, L Hannah PA Unavailable Unavailable Lokesh, L Hannah PA Unavailable Unavailable Lokesh, L Hannah PA Unavailable Unavailable Lokesh, L Hannah PA Unavailable Unavailable Lokesh, L Hannah PA Unavailable Unavailable Lokesh, L Hannha PA Unavailable Unavailable Re-disclosure Warning The records that you are about to access may contain information from federally-assisted alcohol or drug abuse programs. If such information is present, then the following federally mandated warning applies: This information has been disclosed to you from records protected by federal confidentiality rules (42 CFR part 2). The federal rules prohibit you from making any further disclosure of this information unless further disclosure is expressly permitted by the written consent of the person to whom it pertains or as otherwise permitted by 42 CFR part 2. A general authorization for the release of medical or other information is NOT sufficient for this purpose. The Federal rules restrict any use of the information to criminally investigate or prosecute any alcohol or drug abuse patient.The records that you are about to access may contain highly sensitive health information, the redisclosure of which is protected by Article 27-F of the [facility] Public Health law. If you continue you may have access to information: Regarding HIV / AIDS; Provided by facilities licensed or operated by the [facility] Office of Mental Health; or Provided by the [facility] Office for People With Developmental Disabilities. If such information is present, then the following [facility] mandated warning applies: This information has been disclosed to you from confidential records which are protected by state law. State law prohibits you from making any further disclosure of this information without the specific written consent of the person to whom it pertains, or as otherwise permitted by law. Any unauthorized further disclosure in violation of state law may result in a fine or mcfp sentence or both. A general authorization for the release of medical or other information is NOT sufficient authorization for further disc losure. Allergies and Adverse Reactions Type Description Substance Reaction Status Data Source(s ) Drug allergy Amoxicillin Amoxicillin Hives Active eCW1 ([facility]) Family History Family Member Name Family Member Gender Family Member Status Date o f Status Description Data Source(s) Unknown Unknown Problem MEDENT ([facility]) Unknown Unknown Problem [facility], ) Unknown Male Problem MEDENT ([facility] Encounters Encounter Providers Location Date Indications Data Source(s ) Unknown [address] [facility] [address] 06/17/2020 12:00:00 AM EST eCW1 ([facility]) [place] [address] [facility] [address] 03/06/2020 12:00:00 AM EDT eCW1 ([facility]) [address] [address] 01/19/2020 12:00:00 AM EDT eCW1 ([facility]) [address] [place] [address] 09/28/2019 12:00:00 AM EDT eCW1 ([facility]) [address] [place] [address] 09/14/2019 12:00:00 AM EDT eCW1 ([facility]) Outpatient Attender: Hannah VAZ Main Office 08/01/2019 09:15:0 0 AM EST MEDENT ([facility]) [address] [address] 07/17/2019 12:00:00 AM EST eCW1 ([facility]) [address] [place] [address] 06/20/2019 12:00:00 AM EST eCW1 ([facility]) [address] [place] [address] 06/16/2019 12:00:00 AM EST eCW1 ([facility]) [address] [address] 06/13/2019 12:00:00 AM EST eCW1 ([facility]) Medications Medication Brand Name Start Date Product Form Dose Route Admi nistrative Instructions Pharmacy Instructions Status Indications Reaction Description Data Source(s) Famotidine 40 MG Oral Tablet Famotidine 07/31/2019 12:00:00 AM EST ORAL active MEDENT ([facility]) 3 ML Insulin Glargine 100 UNT/ML Pen Injector [Lantus] Lantu s Solostar 07/31/2019 12:00:00 AM EST active MEDENT ([facility]) Alcohol Prep Swabs UNK 06/13/2019 12:00:00 AM EST active 1 swab eCW1 ([facility]) One touch ultra test strips UNK 06/13/2019 12:00:00 AM EST active 1 strip eCW1 ([facility]) Insurance Providers Payer name Policy type / Coverage type Policy ID Covered constitution party ID Covered constitution party's relationship to cordova Policy [place] Plan Information MEDICARE [id number] SP [id number] FOR LIFE [id number] FOR LIFE [id number] [facility] [id number] [facility] [id number] ANSI-Commercial [id number] ANSI-Medicare Part B [id number] MEDICARE [id number] Peri [id number] [facility] [id number] Prime - [employer] Health Maintenance Organization (HMO) [id number] Family Dependent [id number] For Life - WPS Medigap Part B [id number] Family Depen dent [id number] Medicare (Part B) Medicare Primary [id number] Self [id number] Medicare (Part B) Medicare Primary [id number] Self [id number] Prime - [employer] Health Maintenance Organization (HMO) [id number] Family Dependent [id number] For Life - WPS Medigap Part B [id number] Family Depen dent [id number] Medicare (Part B) Medicare Primary [id number] Self [id number] Medicare (Part B) Medicare Primary [id number] Self [id number] Prime - [employer] Health Maintenance Organization (HMO) [id number] Family Dependent [id number] For Life - WPS Medigap Part B [id number] Family Depen dent [id number] Medicare (Part B) Medicare Primary [id number] Self [id number] Medicare (Part B) Medicare Primary [id number] Self [id number] MEDICARE [id number] Peri [id number] A PI PI MEDICARE PI PI Prime - [employer] Health Maintenance Organization (HMO) [id number] Family Dependent [id number] For Life - WPS Medigap Part B [id number] Family Depen dent [id number] Medicare (Part B) Medicare Primary [id number] Self [id number] Prime - [employer] Health Maintenance Organization (HMO) [id number] Family Dependent [id number] For Life - WPS Medigap Part B [id number] Family Depen dent [id number] Medicare (Part B) Medicare Primary [id number] Self [id number] Prime - [employer] Health Maintenance Organization (HMO) [id number] Family Dependent [id number] For Life - WPS Medigap Part B [id number] Family Depen dent [id number] Medicare (Part B) Medicare Primary [id number] Self [id number] Prime - [employer] Health Maintenance Organization (HMO) [id number] Family Dependent [id number] For Life - WPS Medigap Part B [id number] Family Depen dent [id number] Medicare (Part B) Medicare Primary [id number] Self [id number] Prime - [employer] Health Maintenance Organization (HMO) [id number] Family Dependent [id number] For Life - WPS Medigap Part B [id number] Family Depen dent [id number] Medicare (Part B) Medicare Primary [id number] Self [id number] Health Net Federal Prime Health Maintenance Organization (HMO) [id number] Family Dependent [id number] [place] (2017[place] Medigap Part B [id number] Family Dependen t [id number] Medicare [place]/NGS Medicare Primary [id number] Self [id number] MEDICARE [id number] SP [id number] A Health Net Federal Prime Health Maintenance Organization (HMO) [id number] Family Dependent [id number] [place] (2017) Medigap Part B [id number] Family Dependen t [id number] Medicare [place]/NGS Medicare Primary [id number] Self [id number] Health Net Federal Prime Health Maintenance Organization (HMO) [id number] Family Dependent [id number] [place] (2017) Medigap Part B [id number] Family Dependen t [id number] Medicare [place]/NGS Medicare Primary [id number] Self [id number] Health Net Federal [facility] Health Maintenance Organization (HMO) [id number] Family Dependent [id number] Medicare [place]/NGS Medicare Primary [id number] Self [id number] Prime - [employer] Health Maintenance Organization (HMO) [id number] Family Dependent [id number] For Life - WPS Medigap Part B [id number] Family Depen dent [id number] Medicare (Part B) Medicare Primary [id number] Self [id number] FOR LIFE [id number] MEDICARE [id number] SP [id number] A FOR LIFE UNAVAILABLE U NAVAILABLE For Life Commercial [id number] Self [id number] Medicare Medicare Primary [id number] Self 11 [id number] For Life Commercial [id number] Self [id number] Medicare Medicare Primary [id number] Self 11 [id number] For Life Commercial [id number] Self [id number] Medicare Medicare Primary [id number] Self 11 [id number] For Life Commercial [id number] Self [id number] Medicare Medicare Primary [id number] Self 11 [id number] For Life Commercial [id number] Self 11 [id number] Medicare Medicare Primary [id number] Self 11 [id number] For Life Commercial [id number] Self [id number] Medicare Medicare Primary [id number] Self 11 [id number] For Life Commercial [id number] Self [id number] Medicare Medicare Primary [id number] Self 11 [id number] For Life Commercial [id number] Self [id number] Medicare Medicare Primary [id number] Self 11 [id number] For Life Commercial [id number] Self [id number] Medicare Medicare Primary [id number] Self 11 [id number] FOR LIFE O [id number] S [id number] MEDICARE C [id number] S [id number] A Medicare Medicare Primary [id number] Self 11 [id number] Medicare Medicare Primary [id number] Self 11 [id number] Prime - [employer] Health Maintenance Organization (HMO) Family Dependent For Life - WPS Medigap Part B Family Depen dent Medicare (Part B) Medicare Primary Self [id number] Spo [id number] Peri [id number] [facility] [id number] [facility] [id number] Problems, Conditions, and Diagnoses Code Display Name Description Problem Type Effective Dates Data Source(s) Z12.5 817610394 Prostate cancer screening Problem 09/14/2019 12:00:00 AM EDT eCW1 ([facility]) Z12.11 519635943 Colon cancer screening Problem 09/14/2019 12 :00:00 AM EDT eCW1 ([facility]) Z12.5 [id number] Prostate cancer screening Problem 09/14/2019 12:00:00 AM EDT eCW1 ([facility]) Z12.11 518811865 Colon cancer screening Problem 09/14/2019 12 :00:00 AM EDT eCW1 ([facility]) Surgeries/Procedures Procedure Description Date Indications Data Source(s) PHYSICIAN TELEPHONE EVALUATION 11-20 MIN 09/14/2019 12 :00:00 AM EDT eCW1 ([facility]) ECG ROUTINE ECG W/LEAST 12 LDS W/I&R 08/01/2019 12:00: 00 AM EST MEDENT ([facility]) Office Visit, Est Pt., Level 3 PC 06/13/2019 12:00:00 AM EST eCW1 ([facility]) Office Visit, Est Pt., Level 2 FC 06/13/2019 12:00:00 AM EST eCW1 ([facility]) Social History Code Duration Value Status Description Data Source(s ) Smoking 09/14/2019 12:00:00 AM EDT Former Smoker completed Former Smoker eCW1 ([facility]) Smoking 09/14/2019 12:00:00 AM EDT Former Smoker completed Former Smoker eCW1 ([facility]) Vital Signs ID Date Data Source UNK Name Value Range Interpretation Code Description Data Source(s) Diastolic blood pressure 83 mm[Hg] 83 mm[Hg] eCW1 ([facility]) Systolic blood pressure 140 mm[Hg] 140 mm[Hg] e CW1 ([facility]) Body mass index (BMI) [Ratio] 30.21 kg/m2 30.21 kg/m2 eCW1 ([facility]) Body height 64 [in_us] 64 [in_us] eCW1 ([facility]) Body weight Measured 176 [lb_av] 176 [lb_av] eC W1 ([facility]) Diastolic blood pressure--sitting 68 mm[Hg] 68 mm[Hg] MEDENT ([facility]) large cuff, Ra Systolic blood pressure--sitting 104 mm[Hg] 104 mm[Hg] MEDENT ([facility]) large cuff, Ra Heart rate 82 /min 82 /min MEDENT ([facility]) Body mass index (BMI) [Ratio] 33.0 kg/m2 33.0 k g/m2 MEDENT ([facility]) Body height 64 [in_i] 64 [in_i] MEDENT ([facility]) 5'4" Body weight 192.00 [lb_av] 192.00 [lb_av] MEDEN T ([facility]) Diastolic blood pressure 72 mm[Hg] 72 mm[Hg] eCW1 ([facility]) Systolic blood pressure 132 mm[Hg] 132 mm[Hg] e CW1 ([facility]) Body temperature 98.0 [degF] 98.0 [degF] eCW1 ( [facility]) Respiratory rate 17 /min 17 /min eCW1 ([facility]) Heart rate 86 /min 86 /min eCW1 ([facility]) Body mass index (BMI) [Ratio] 32.47 kg/m2 32.47 kg/m2 eCW1 ([facility]) Body height 64 [in_us] 64 [in_us] eCW1 ([facility]) Body weight Measured 189.2 [lb_av] 189.2 [lb_av ] eCW1 ([facility]) Patient Treatment Plan of Care Planned Activity Planned Date Details Description Data Source (s) Alcohol Prep Swabs 06/13/2019 12:00:00 AM EST eCW1 ([facility]) One touch ultra test strips 06/13/2019 12:00:00 AM EST eCW1 ([facility])
--- OUTSIDE RECORDS SUMMARY | 2020-07-12 10:39 | CCD ---
Author Author [facility] Organization [facility] Address Unknown Phone Unavailable Care Team Providers Care Glueline Worker Name Role Phone Candy Henning Unavailable PROBLEMS Type Condition ICD9-CM Code EKL38-ZO Code Onset Dates Condition S tatus SNOMED Code Notes Problem Type 2 diabetes mellitus wit hout complication, without long-term current use of insulin E11.9 Active 030069402 Problem Pulmonary emphysema, unspecified emphysema type J4 3.9 Active 97795709 Problem Colon cancer screening Z12.11 Active 292678726 Problem Prostate cancer screening Z12.5 Active 305026 001 Problem Gastroesophageal reflux disease without esophagitis K21.9 Active 771348143 Problem Essential hypertension I10 Active 01115232 Problem Mixed hyperlipidemia E78.2 Active 475514906 Problem Type 2 diabetes mellitus wit h hyperglycemia, without long-term current use of insulin E11.65 Active 98556424 ALLERGIES Allergen (clinical drug ingredient) Drug/Non Drug Allergy do cumented on EMR Reaction Allergy Type Onset Date Status amoxicillin Amoxicillin([facility] Code:[address]-40) Hives Drug Aller gy Active ENCOUNTERS from 1960 to 2020-06-18 Encounter Location Date Provider Diagnosis [address] [address] Jun, Candy Henning IMMUNIZATIONS No Information SOCIAL HISTORY Tobacco Use: Social History Observation Description Date Details (start date - stop date) Former Smoker Sex Assigned At : Social History Observation Description Sex Assigned At Unknown Education: Question Answer Notes Level of Education: Not Finished College Audit Question Answer Notes Total Score: 2 Interpretation: Alcohol Education Language: Question Answer Notes Languages spoken: Irish Temple: Question Answer Notes Temple No baptist beliefs that would impact health care. Sexual Hx: Question Answer Notes Had sex in the last 12 months (vaginal, oral, or anal)? Yes Have you ever had an STD? No with Women only Use protection? No Drug and Alcohol Question Answer Notes Total Score: 0 Interpretation: No problems reported Tobacco Use: Question Answer Notes Are you a: former smoker How long has it been since you last smoked? > 10 years REASON FOR REFERRAL No Information VITAL SIGNS No information MEDICATIONS Medication SIG (Take, Route, Frequency, Duration) Notes Start Da te End Date Status MetFORMIN HCl ER 500 MG 1 tablet with evening meal Orally bid for 9 0 day(s) Active Chlorthalidone 25 MG 1/2 tablet in the morning wi th food Orally Once a day for 90 day(s) Active One touch ultra test strips 1 strip Dx E11.9 four times daily for 30 Days Active Lantus SoloStar 100 UNIT/ML 35units Subcutaneous before bedtime for 30 days Active Advair HFA 230-21 MCG/ACT 2 puffs Inhalation Twice a day for 90 day(s ) Active Diazepam 5 MG 1 tablet as needed Orally once a day Active ProAir HFA 108 (90 Base) mcg/act 2 puffs as needed Inh alation qid prn for 90 day(s) Active Perindopril Erbumine 4 MG 1 tablet Orally Once a day for 90 day(s) Active Nitrostat 0.3 MG as directed Sublingual Active Pepcid 40 MG 1 tablet at bedtime Orally bid for 30 day(s) May, Active Alcohol Prep Swabs 1 swab Dx E11.9 four times daily for 30 Days Active Atorvastatin Calcium 80 MG 1 tablet Orally Once a day for 90 day(s) Active Isosorbide Mononitrate ER 60 MG 1 tablet in the mornin g Orally Once a day for 90 day(s) Active Plavix 75 MG 1 tablet Orally Once a day for 90 day(s) Active AmLODIPine Besylate 5 MG 1 tablet Orally Once a day for 90 day(s) Active Aspirin 325 MG 1 tablet Orally Once a day for 90 day(s) Active Carvedilol 25 mg 1 tab Orally twice a day for 90 day(s) Active BD Pen Needle Mini U/F 31G X 5 MM as directed subcutan eously before bedtime for 30 days Active PROCEDURES No Information RESULTS No Results REASON FOR VISIT blood work MEDICAL (GENERAL) HISTORY Type Description Date Medical History CAD s/p quad bypass Medical History COPD Medical History HLD Medical History HTN Medical History T2DM Medical History GERD Medical History Chronic muscle spasms Surgical History quadruple bypass 2002 Surgical History stent placement x2 2005 Surgical History stent placement 2019 Surgical History s/p colonoscopy c polypectom , diverticulosis, int. non-bleeding hem.s-Dr. White f/u5Y 2018 Hospitalization History surgeries Goals Section No Information Health Concerns No Information MEDICAL EQUIPMENT No Information MENTAL STATUS No Information FUNCTIONAL STATUS No Information ASSESSMENTS No Information PLAN OF TREATMENT Medication Medication Name Sig Start Date Stop Date Perindopril Erbumine 4 MG 1 tablet Orally Once a day for 90 day( s) Aspirin 325 MG 1 tablet Orally Once a day for 90 day(s) Carvedilol 25 mg 1 tab Orally twice a day for 90 day(s) Atorvastatin Calcium 80 MG 1 tablet Orally Once a day for 90 day (s) One touch ultra test strips 1 strip Dx E11.9 four times daily fo r 30 Days MetFORMIN HCl ER 500 MG 1 tablet with evening meal Orally bid fo r 90 day(s) Lantus SoloStar 100 UNIT/ML 35units Subcutaneous before bedtime for 30 days Plavix 75 MG 1 tablet Orally Once a day for 90 day(s) BD Pen Needle Mini U/F 31G X 5 MM as directed subcutan eously before bedtime for 30 days Alcohol Prep Swabs 1 swab Dx E11.9 four times daily for 30 Days Insurance Providers Payer Name Payer Address Payer Phone Insured Name Patient Relati onship to Insured Coverage Start Date Coverage End Date FOR LIFE [address] [facility] [phone] [place] TONO JIMÉNEZ [id number] MEDICARE Part A and B [address] [place] [phone] TONO MUJICA self
[2020-07-12] MEDS ORDERED: LANTINJ4 (10:44)
[2020-07-12] MEDS ORDERED: PROAAER10 INH (10:44)
[2020-07-12] MEDS ORDERED: AMLO1TAB24 (10:44)
[2020-07-12] MEDS ORDERED: ISOS1TAB36 (10:44)
[2020-07-12] MEDS ORDERED: ADV100INH INH (10:44)
--- OUTSIDE RECORDS SUMMARY | 2020-07-12 11:16 | CCD ---
Author Author [facility] Organization [facility] Address Unknown Phone Unavailable Care Team Providers Care Window Glass Installer Name Role Phone Lokesh, L Hannah PA [...] Unavailable Lokesh, L Hannah PA Unavailable Unavailable Re-disclosure Warning The records [...] is protected by Article 27-F of the [facility] Public Health law. If you continue you may have access to information: Regarding HIV / AIDS; Provided by facilities licensed or operated by the [facility] Office of Mental Health; or Provided by the [facility] Office for People With Developmental Disabilities. If such information is present, then the following [facility] mandated warning applies: This information has been [...] law may result in a fine or assisted sentence or both. A general authorization for the release of medical or other information is NOT sufficient authorization for further disc losure. Allergies and Adverse Reactions Type Description Substance Reaction Status Data Source(s ) Drug allergy Amoxicillin Amoxicillin Hives Active eCW1 ([facility]) Family History Family Member Name Family Member Gender Family Member Status Date o f Status Description Data Source(s) Unknown Unknown Problem MEDENT ([facility]) Unknown Unknown Problem [facility] Unknown Male Problem MEDENT ([facility] () Encounters Encounter Providers Location Date Indications Data Source(s ) Unknown [address] [facility] [address] 06/17/2020 12:00:00 AM EST eCW1 ([facility]) [place] [address] [facility] [address] 03/06/2020 12:00:00 AM EDT eCW1 ([facility]) [address] [address] 01/19/2020 12:00:00 AM EDT eCW1 ([facility]) [address] [place] [address] 09/28/2019 12:00:00 AM EDT eCW1 ([facility]) [address] [place] [address] 09/14/2019 12:00:00 AM EDT eCW1 ([facility]) Outpatient Attender: Hannah VAZ Main Office 08/01/2019 09:15:0 0 AM EST MEDENT ([facility]) [address] [address] 07/17/2019 12:00:00 AM EST eCW1 ([facility]) [address] [place] [address] 06/20/2019 12:00:00 AM EST eCW1 ([facility]) [address] [place] [address] 06/16/2019 12:00:00 AM EST eCW1 ([facility]) [address] [address] 06/13/2019 12:00:00 AM EST eCW1 ([facility]) Medications Medication Brand Name Start Date Product Form Dose Route Admi nistrative Instructions Pharmacy Instructions Status Indications Reaction Description Data Source(s) Famotidine 40 MG Oral Tablet Famotidine 07/31/2019 12:00:00 AM EST ORAL active MEDENT ([facility]) 3 ML Insulin Glargine 100 UNT/ML Pen Injector [Lantus] Lantu s Solostar 07/31/2019 12:00:00 AM EST active MEDENT ([facility]) Alcohol Prep Swabs UNK 06/13/2019 12:00:00 AM EST active 1 swab eCW1 ([facility]) One touch ultra test strips UNK 06/13/2019 12:00:00 AM EST active 1 strip eCW1 ([facility]) Insurance Providers Payer name Policy type / Coverage type Policy ID Covered constitution party ID Covered constitution party's relationship to cordova Policy [place] Plan Information MEDICARE [id number] SP [id number] FOR LIFE [id number] [id number] FOR LIFE [id number] [place] HU[place] [id number] [facility] [id number] ANSI-Commercial [id number] ANSI-Medicare Part B [id number] MEDICARE [id number] Peri [id number] [id number] [facility] [id number] Prime - [employer] Health Maintenance Organization (HMO) [id number] Family Dependent [id number] For Life - WPS Medigap Part B [id number] Family Depen dent [id number] Medicare (Part B) Medicare Primary [id number] Self [id number] Medicare (Part B) Medicare Primary [id number] Self [id number] Prime - [employer] Health Maintenance Organization (HMO) [id number] Family Dependent [id number] For Life - WPS Medigap Part B [id number] Family Depen dent [id number] Medicare (Part B) Medicare Primary [id number] Self [id number] Medicare (Part B) Medicare Primary [id number] Self [id number] Prime - [employer] Health Maintenance Organization (HMO) [id number] Family Dependent [id number] For Life - WPS Medigap Part B [id number] Family Depen dent [id number] Medicare (Part B) Medicare Primary [id number] Self [id number] Medicare (Part B) Medicare Primary [id number] Self [id number] MEDICARE [id number] Peri [id number] A PI PI MEDICARE PI PI Prime - [employer] Health Maintenance Organization (HMO) [id number] Family Dependent [id number] For Life - WPS Medigap Part B [id number] Family Depen dent [id number] Medicare (Part B) Medicare Primary [id number] Self [id number] Prime - [employer] Health Maintenance Organization (HMO) [id number] Family Dependent [id number] For Life - WPS Medigap Part B [id number] Family Depen dent [id number] Medicare (Part B) Medicare Primary [id number] Self [id number] Prime - [employer] Health Maintenance Organization (HMO) [id number] Family Dependent [id number] For Life - WPS Medigap Part B [id number] Family Depen dent [id number] Medicare (Part B) Medicare Primary [id number] Self [id number] Prime - [employer] Health Maintenance Organization (HMO) [id number] Family Dependent [id number] For Life - WPS Medigap Part B [id number] Family Depen dent [id number] Medicare (Part B) Medicare Primary [id number] Self [id number] Prime - [employer] Health Maintenance Organization (HMO) [id number] Family Dependent [id number] For Life - WPS Medigap Part B [id number] Family Depen dent [id number] Medicare (Part B) Medicare Primary [id number] Self [id number] [employer] Health Maintenance Organization (HMO) [id number] Family Dependent [id number] [place] (2017) Medigap Part B [id number] Family Dependen t [id number] Medicare [place]/NGS Medicare Primary [id number] Self [id number] MEDICARE [id number] SP [id number] A [employer] Health Maintenance Organization (HMO) [id number] Family Dependent [id number] [place] (2017) Medigap Part B [id number] Family Dependen t [id number] Medicare [place]/NGS Medicare Primary [id number] Self [id number] [employer] Health Maintenance Organization (HMO) [id number] Family Dependent [id number] [place] (2017) Medigap Part B [id number] Family Dependen t [id number] Medicare [place]/NGS Medicare Primary [id number] Self [id number] Health [employer] Federal [facility] Health Maintenance Organization (HMO) [id number] Family Dependent [id number] Medicare [place]/NGS Medicare Primary [id number] Self [id number] Prime - [facility] Health Maintenance Organization (HMO) [id number] Family Dependent [id number] For Life - WPS Medigap Part B [id number] Family Depen dent [id number] Medicare (Part B) Medicare Primary [id number] Self [id number] FOR LIFE [id number] MEDICARE [id number] SP [id number] A FOR LIFE UNAVAILABLE U NAVAILABLE For Life Commercial [id number] Self [id number] Medicare Medicare Primary [id number] Self 11 [id number] For Life Commercial [id number] Self [id number] Medicare Medicare Primary [id number] Self 11 [id number] For Life Commercial [id number] Self [id number] Medicare Medicare Primary [id number] Self 11 [id number] For Life Commercial [id number] Self [id number] Medicare Medicare Primary [id number] Self 11 [id number] For Life Commercial [id number] Self [id number] Medicare Medicare Primary [id number] Self 11 [id number] For Life Commercial [id number] Self [id number] Medicare Medicare Primary [id number] Self 11 [id number] For Life Commercial [id number] Self [id number] Medicare Medicare Primary [id number] Self 11 [id number] For Life Commercial [id number] Self [id number] Medicare Medicare Primary [id number] Self 11 [id number] For Life Commercial [id number] Self [id number] Medicare Medicare Primary [id number] Self [id number] FOR LIFE O [id number] S [id number] MEDICARE C [id number] S [id number] A Medicare Medicare Primary [id number] Self [id number] Medicare Medicare Primary [id number] Self [id number] Prime - [employer] Health Maintenance Organization (HMO) Family Dependent For Life - WPS Medigap Part B Family Depen dent Medicare (Part B) Medicare Primary Self [id number] Spo [id number] [facility] [id number] [facility] [id number] [facility] [id number] [facility] [id number] Problems, Conditions, and Diagnoses Code Display Name Description Problem Type Effective Dates Data Source(s) Z12.5 [id number] Prostate cancer screening Problem 09/14/2019 12:00:00 AM EDT eCW1 ([facility]) Z12.11 [id number] Colon cancer screening Problem 09/14/2019 12 :00:00 AM EDT eCW1 ([facility]) Z12.5 [id number] Prostate cancer screening Problem 09/14/2019 12:00:00 AM EDT eCW1 ([facility]) Z12.11 [id number] Colon cancer screening Problem 09/14/2019 12 :00:00 AM EDT eCW1 ([facility]) Surgeries/Procedures Procedure Description Date Indications Data Source(s) PHYSICIAN TELEPHONE EVALUATION 11-20 MIN 09/14/2019 12 :00:00 AM EDT eCW1 ([facility]) ECG ROUTINE ECG W/LEAST 12 LDS W/I&R 08/01/2019 12:00: 00 AM EST MEDENT ([facility]) Office Visit, Est Pt., Level 3 PC 06/13/2019 12:00:00 AM EST eCW1 ([facility]) Office Visit, Est Pt., Level 2 FC 06/13/2019 12:00:00 AM EST eCW1 ([facility]) Social History Code Duration Value Status Description Data Source(s ) Smoking 09/14/2019 12:00:00 AM EDT Former Smoker completed Former Smoker eCW1 ([facility]) Smoking 09/14/2019 12:00:00 AM EDT Former Smoker completed Former Smoker eCW1 ([facility]) Vital Signs ID Date Data Source UNK Name Value Range Interpretation Code Description Data Source(s) Diastolic blood pressure 83 mm[Hg] 83 mm[Hg] eCW1 ([facility]) Systolic blood pressure 140 mm[Hg] 140 mm[Hg] e CW1 ([facility]) Body mass index (BMI) [Ratio] 30.21 kg/m2 30.21 kg/m2 eCW1 ([facility]) Body height 64 [in_us] 64 [in_us] eCW1 ([facility]) Body weight Measured 176 [lb_av] 176 [lb_av] eC W1 ([facility]) Diastolic blood pressure--sitting 68 mm[Hg] 68 mm[Hg] MEDENT ([facility]) large cuff, Ra Systolic blood pressure--sitting 104 mm[Hg] 104 mm[Hg] MEDENT ([facility]) large cuff, Ra Heart rate 82 /min 82 /min MEDENT ([facility]) Body mass index (BMI) [Ratio] 33.0 kg/m2 33.0 k g/m2 MEDENT ([facility]) Body height 64 [in_i] 64 [in_i] MEDENT ([facility]) 5'4" Body weight 192.00 [lb_av] 192.00 [lb_av] MEDEN T ([facility]) Diastolic blood pressure 72 mm[Hg] 72 mm[Hg] eCW1 ([facility]) Systolic blood pressure 132 mm[Hg] 132 mm[Hg] e CW1 ([facility]) Body temperature 98.0 [degF] 98.0 [degF] eCW1 ( [facility]) Respiratory rate 17 /min 17 /min eCW1 ([facility]) Heart rate 86 /min 86 /min eCW1 ([facility]) Body mass index (BMI) [Ratio] 32.47 kg/m2 32.47 kg/m2 eCW1 ([facility]) Body height 64 [in_us] 64 [in_us] eCW1 ([facility]) Body weight Measured 189.2 [lb_av] 189.2 [lb_av ] eCW1 ([facility]) Patient Treatment Plan of Care Planned Activity Planned Date Details Description Data Source (s) Alcohol Prep Swabs 06/13/2019 12:00:00 AM EST eCW1 ([facility]) One touch ultra test strips 06/13/2019 12:00:00 AM EST eCW1 ([facility])
[2020-07-12 12:39] LABS: BASO # 0.1 10^3/uL (0.0-0.2); BASO % 0.4 % (0.0-1.0); EOS # 0.2 10^3/uL (0.0-0.5); EOS % 1.8 % (0.0-3.0); HEMATOCRIT 47.5 % (42.0-52.0); HEMOGLOBIN 15.2 g/dl (13.5-17.5); LYMPH # 1.7 10^3/uL (1.5-5.0); LYMPH % 14.8 % (24.0-44.0); MEAN CORPUSCULAR HEMOGLOBIN 30.5 pg (27.0-33.0); MEAN CORPUSCULAR VOLUME 95.2 fl (80.0-96.0); MONO % 8.9 % (0.0-5.0); NEUTROPHILS # 8.6 10^3/uL (1.5-8.5); NEUTROPHILS % 73.6 % (36.0-66.0); PLATELET COUNT, AUTOMATED 296 10^3/uL (150-450); RED BLOOD COUNT 4.99 10^6/uL (4.30-6.10)
[2020-07-12 12:43] LABS: WHITE BLOOD COUNT 11.7 10^3/uL (4.0-10.0)
--- NOTE | 2020-07-12 12:53 | REP ---
INDICATION: swelling, redness warmth L 1st toe COMPARISON: 08/07/2016. TECHNIQUE: Four views left toes. FINDINGS: There is no evidence of acute fracture or dislocation. No definite radiographic signs of osteomyelitis are visualized, with no definite cortical destruction or periosteal reaction. There is mild degenerative joint space narrowing with subchondral sclerosis and spurring at the 1st interphalangeal joint. No other abnormalities are seen. IMPRESSION: No fracture or dislocation. No definite radiographic signs of osteomyelitis. Mild degenerative changes 1st interphalangeal joint. <Electronically signed by Charli Somers > 07/12/20 [id number]
[2020-07-12 13:04] LABS: ERYTHROCYTE SEDIMENTATION RATE 10 mm/hr (0-20)
[2020-07-12 13:06] LABS: C REACTIVE PROTEIN QUANTITATIV 0.72 MG/DL (0.00-0.30)
[2020-07-12] MEDS ORDERED: PRED20TA PO (14:21)
[2020-07-12 14:38] VITALS: BP 144/73
== END 2020-07-12 14:43 | disposition home or self-care (01) ==
LOC: M ED 10:31
DX: M10.072 Idiopathic gout, left ankle and foot (principal); I25.10 Atherosclerotic heart disease of native coronary artery without angina pectoris; I25.2 Old myocardial infarction; E11.9 Type 2 diabetes mellitus without complications; I10 Essential (primary) hypertension; E78.5 Hyperlipidemia, unspecified; Z88.1 Allergy status to other antibiotic agents; Z79.4 Long term (current) use of insulin; Z79.51 Long term (current) use of inhaled steroids; Z79.899 Other long term (current) drug therapy

== ENCOUNTER → 2020-07-17 | Outpatient (REF) | payer MEDICARE, OTHER ==
[~2020-07-17] MED LIST changes: +ADV100INH INH; +AMLO1TAB24; +ISOS1TAB36; +LANTINJ4; +PRED20TA PO; +PROAAER10 INH
[2020-07-17 18:11] LABS: BASO # 0.1 10^3/uL (0.0-0.2); BASO % 0.4 % (0.0-1.0); EOS # 0.1 10^3/uL (0.0-0.5); EOS % 0.7 % (0.0-3.0); HEMATOCRIT 49.6 % (42.0-52.0); HEMOGLOBIN 15.9 g/dl (13.5-17.5); LYMPH # 3.1 10^3/uL (1.5-5.0); LYMPH % 16.4 % (24.0-44.0); MEAN CORPUSCULAR HEMOGLOBIN 30.6 pg (27.0-33.0); MEAN CORPUSCULAR HGB CONC 32.1 g/dl (32.0-36.5); MEAN CORPUSCULAR VOLUME 95.6 fl (80.0-96.0); MONO # 1.6 10^3/uL (0.0-0.8); MONO % 8.5 % (0.0-5.0); NEUTROPHILS # 13.9 10^3/uL (1.5-8.5); PLATELET COUNT, AUTOMATED 380 10^3/uL (150-450); RED BLOOD COUNT 5.19 10^6/uL (4.30-6.10)
[2020-07-17 18:27] LABS: HEMOGLOBIN A1c 7.1 %
[2020-07-17 18:41] LABS: WHITE BLOOD COUNT 19.1 10^3/uL (4.0-10.0)
[2020-07-17 18:44] LABS: ALT/SGPT 53 U/L (12-78); BILIRUBIN,TOTAL 0.6 MG/DL (0.2-1.0); BLOOD UREA NITROGEN 18 MG/DL (7-18); CALCIUM LEVEL 9.7 MG/DL (8.8-10.2); CARBON DIOXIDE LEVEL 31 MEQ/L (21-32); CHLORIDE LEVEL 103 MEQ/L (98-107); CHOLESTEROL LEVEL 88 MG/DL (<200); CHOLESTEROL RISK RATIO 2.378 (<5); CPK CREATINE PHOSPHOKINASE 70 U/L (39-308); CREATININE FOR GFR 1.26 MG/DL (0.70-1.30); GLOMERULAR FILTRATION RATE > 60.0 (>49); GLUCOSE, FASTING 130 MG/DL (70-100); HDL CHOLESTEROL 37 MG/DL (>40); LDL CHOLESTEROL 27 MG/DL (<100); NON-HDL-C 51 MG/DL; POTASSIUM SERUM 4.4 MEQ/L (3.5-5.1); SODIUM LEVEL 141 MEQ/L (136-145); TRIGLYCERIDES LEVEL 119 MG/DL (<150); URIC ACID 8.3 MG/DL (3.5-7.2)
[2020-07-17 18:49] LABS: MALB URINE SIEMENS 11.7 MG/L; MAU/CREAT RATIO 4.6 MCG/MG (0.0-30.0)
== END ==
LOC: M SFHCPLAZ 14:49
PROVIDERS: ATTEND Physician Assistant Medical
DX: E11.65 Type 2 diabetes mellitus with hyperglycemia (principal); K21.9 Gastro-esophageal reflux disease without esophagitis; E78.2 Mixed hyperlipidemia; M10.372 Gout due to renal impairment, left ankle and foot; Z12.5 Encounter for screening for malignant neoplasm of prostate
CPT/HCPCS: 36415; 80053; 80061; 82043; 82550; 83036; 84550; 85025; 86140; G0103

== ENCOUNTER → 2020-07-30 | Outpatient (REF) | payer MEDICARE, OTHER ==
[2020-07-30 13:52] LABS: BASO % 0.3 % (0.0-1.0); EOS % 0.2 % (0.0-3.0); HEMATOCRIT 45.6 % (42.0-52.0); HEMOGLOBIN 14.4 g/dl (13.5-17.5); LYMPH # 0.9 10^3/uL (1.5-5.0); LYMPH % 7.2 % (24.0-44.0); MEAN CORPUSCULAR HEMOGLOBIN 30.3 pg (27.0-33.0); MEAN CORPUSCULAR HGB CONC 31.6 g/dl (32.0-36.5); MEAN CORPUSCULAR VOLUME 95.8 fl (80.0-96.0); MONO # 0.3 10^3/uL (0.0-0.8); MONO % 2.4 % (2.0-8.0); NEUTROPHILS # 11.4 10^3/uL (1.5-8.5); NEUTROPHILS % 89.3 % (36.0-66.0); PLATELET COUNT, AUTOMATED 328 10^3/uL (150-450); RED BLOOD COUNT 4.76 10^6/uL (4.30-6.10); WHITE BLOOD COUNT 12.7 10^3/uL (4.0-10.0)
== END ==
LOC: M SFHCPLAZ 10:04
PROVIDERS: ATTEND Physician Assistant Medical
DX: M10.372 Gout due to renal impairment, left ankle and foot (principal)

== ENCOUNTER 2020-08-18 07:50 | Emergency (ER) | payer MEDICARE, OTHER ==
[~2020-08-18] VITALS: Ht 162.6 cm; Wt 93.9 kg
[~2020-08-18 07:50] MED LIST changes: -LANTINJ4; +LANTINJ4 SC
[2020-08-18] MEDS ORDERED: ZYLO300T6 PO (08:05)
[2020-08-18] MEDS ORDERED: ADVA230A INH (08:05)
[2020-08-18] MEDS ORDERED: CHLO125TA PO (08:05)
[2020-08-18] MEDS ORDERED: FAMO40TA3 (08:05)
[2020-08-18] MEDS ORDERED: ACETAMINOPHEN 500 MG TAB PO ONE (08:25)
[2020-08-18] MEDS ORDERED: CHLORTHALIDONE 25 MG TAB PO ONE (08:30)
[2020-08-18] MEDS ORDERED: amLODIPine 5 MG TAB PO ONE (08:30)
[2020-08-18 08:46] LABS: BASO # 0.1 10^3/uL (0.0-0.2); BASO % 0.5 % (0.0-1.0); EOS # 0.3 10^3/uL (0.0-0.5); HEMOGLOBIN 14.8 g/dl (13.5-17.5); LYMPH # 1.3 10^3/uL (1.5-5.0); LYMPH % 9.7 % (24.0-44.0); MEAN CORPUSCULAR HEMOGLOBIN 30.6 pg (27.0-33.0); MEAN CORPUSCULAR HGB CONC 32.9 g/dl (32.0-36.5); MONO % 7.8 % (2.0-8.0); NEUTROPHILS # 10.6 10^3/uL (1.5-8.5); NEUTROPHILS % 79.4 % (36.0-66.0); PLATELET COUNT, AUTOMATED 330 10^3/uL (150-450); RED BLOOD COUNT 4.84 10^6/uL (4.30-6.10); WHITE BLOOD COUNT 13.3 10^3/uL (4.0-10.0)
--- NOTE | 2020-08-18 09:00 | REP ---
INDICATION: L hand/wrist pain/swelling COMPARISON: None. TECHNIQUE: AP, lateral, bilateral oblique views left wrist. FINDINGS: Old fracture involving the ulnar styloid/distal ulna cannot be excluded. Fracture of the scaphoid cannot be excluded. Clinical correlation is required and if necessary re-evaluation including scaphoid views should be considered. Surgical clips in the adjacent soft tissues noted. IMPRESSION: Cannot exclude old injury involving the distal ulna. Cannot exclude fracture of the scaphoid. Correlation with physical examination and point of tenderness as well as mechanism of injury is recommended. If necessary consider re-evaluation including scaphoid views. <Electronically signed by Mika Sarah > 08/18/20 [id number]
--- NOTE | 2020-08-18 09:02 | REP ---
INDICATION: L hand pain/swelling COMPARISON: None. TECHNIQUE: AP, lateral, bilateral oblique views left hand. FINDINGS: Generalized age-related changes are appreciated. Old injury involving the distal ulna should be correlated with history. No obvious acute fracture or dislocation identified. However, injury to the scaphoid bone at the wrist cannot be excluded and may warrant further investigation if clinically relevant. IMPRESSION: Generalized arthritic changes. Old injury to the distal ulna. Cannot exclude scaphoid fracture. Clinical correlation is recommended. If necessary consider wrist examination with scaphoid views.. <Electronically signed by Mika Sarah > 08/18/20 [id number]
[2020-08-18 09:05] LABS: ERYTHROCYTE SEDIMENTATION RATE 18 mm/hr (0-20)
[2020-08-18 09:06] LABS: BLOOD UREA NITROGEN 11 MG/DL (7-18); C REACTIVE PROTEIN QUANTITATIV 1.41 MG/DL (0.00-0.30); CALCIUM LEVEL 8.8 MG/DL (8.8-10.2); CARBON DIOXIDE LEVEL 25 MEQ/L (21-32); CHLORIDE LEVEL 102 MEQ/L (98-107); CREATININE FOR GFR 0.95 MG/DL (0.70-1.30); GLOMERULAR FILTRATION RATE > 60.0 (>49); GLUCOSE, FASTING 214 MG/DL (70-100); POTASSIUM SERUM 3.8 MEQ/L (3.5-5.1); SODIUM LEVEL 135 MEQ/L (136-145); URIC ACID 6.8 MG/DL (3.5-7.2)
[2020-08-18] MEDS ORDERED: COLCHICINE 0.6 MG TABLET PO ONE ×2 (09:15→10:20)
[2020-08-18] MEDS ORDERED: PRED20TA PO (10:20)
[2020-08-18 10:30] VITALS: BP 170/84
--- NOTE | 2020-08-19 12:38 | ED PDOC ---
Post-Departure Follow-Up sneha juarez faxed formal report of left wrist film for fu Brenda Espitia MD Aug 19, 2020 12:38
== END 2020-08-18 10:34 | disposition home or self-care (01) ==
LOC: M ED 07:50
DX: M10.042 Idiopathic gout, left hand (principal); M19.042 Primary osteoarthritis, left hand; I11.9 Hypertensive heart disease without heart failure; E11.9 Type 2 diabetes mellitus without complications; I25.2 Old myocardial infarction; J44.9 Chronic obstructive pulmonary disease, unspecified; K21.9 Gastro-esophageal reflux disease without esophagitis; G89.29 Other chronic pain; M54.5 Low back pain; F41.9 Anxiety disorder, unspecified; Z95.5 Presence of coronary angioplasty implant and graft; Z88.1 Allergy status to other antibiotic agents; Z79.899 Other long term (current) drug therapy

== ENCOUNTER → 2020-08-27 | Outpatient (CLI) | payer MEDICARE, OTHER ==
[~2020-08-27] MED LIST changes: +ADVA230A INH; +CHLO125TA PO; +FAMO40TA3; +ISOVUE-300 61% 50ML VIAL As Ordered ONE; +LIDOCAINE 1% MDV 20ML VIAL As Ordered ONE; +ZYLO300T6 PO
[2020-08-27 16:17] LABS: CRYSTALS, BODY FLUID NONE SEEN (NONE SEEN); SOURCE, BODY FLUID CRYSTALS LT WRIST
--- NOTE | 2020-08-27 18:14 | REP ---
INDICATION: PAIN IN LEFT WRIST. COMPARISON: None. TECHNIQUE: The procedure was performed under the direct supervision of Dr. Somers. The risks and benefits of the procedure were explained to the patient and informed consent was obtained. The left radioscaphoid joint space was localized using fluoroscopic guidance. The skin was prepped and draped in a sterile fashion. 1% lidocaine was used as a local anesthetic. Using fluoroscopic guidance a 22 gauge needle was inserted and advanced into the joint. A few drops of aspirate were obtained and sent to the lab for analysis. The patient tolerated the procedure well and there were no immediate complications. Less than 6 seconds of fluoroscopy time was utilized for this procedure. FINDINGS: None IMPRESSION: Fluoro guidance for left wrist aspiration. <Electronically signed by Lobo Vance > 08/27/20 [id number] <Electronically signed by Charli Somers > 08/27/20 [id number]
== END ==
LOC: M RADPRO 14:38
PROVIDERS: ATTEND Orthopaedic Surgery Adult Reconstructive Orthopaedic Surgery
DX: M25.532 Pain in left wrist (principal)

== ENCOUNTER → 2020-09-02 | Outpatient (CLI) | payer MEDICARE, OTHER ==
[~2020-09-02] MED LIST changes: -ISOVUE-300 61% 50ML VIAL As Ordered ONE; -LIDOCAINE 1% MDV 20ML VIAL As Ordered ONE
--- NOTE | 2020-09-02 09:15 | REP ---
INDICATION: PAIN SWELLING IN LT WRIST. Left wrist pain and swelling for greater than 1 week. Aspiration of wrist negative for crystals and g stain negative. Possible scaphoid fracture on radiographs. COMPARISON: Comparison radiographs are from August 18, 2020.. TECHNIQUE: Axial, coronal, and sagittal imaging planes utilized. T1 and T2 weighted scans are included with and without fat saturation. FINDINGS: Cortical and medullary bone signal intensity is normal in the distal radius distal ulna, carpal bones, and visualized metacarpals. There is no evidence of occult scaphoid or other carpal injury. There is subcortical cyst formation in the lunate. There is mild osteoarthritic spurring in the 1st carpometacarpal articulation and in the navicular 0 multangular articulation. A tiny subcortical cyst is seen in the distal navicula at this articulation. There is also osteoarthritic spurring in the distal radioulnar joint. The navicular lunate ligament appears intact. Triangular fibrocartilage does not appear disrupted. T1 and T2 weighted scans demonstrate synovial hypertrophy pattern in the carpus along the dorsal and palm are aspect of the wrist deep to the extensor tendons consistent with synovitis. Heterogeneous T2 signal intensity is seen. Flexor and extensor tendons are unremarkable. Carpal tunnel and its contents appear intact. There are numerous low T1 high T2 signal intensity structures in this subcutaneous layer of the thenar and hypothenar soft tissues which appear to be vascular structures. There are metallic field susceptibility artifacts in the soft tissues adjacent to the radius laterally corresponding with a clip seen on the radiographs. IMPRESSION: No evidence of occult carpal injury. Synovial hypertrophy pattern at the carpus. 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 <Electronically signed by Chris Ramirez > 09/02/20 [id number]
== END ==
LOC: M RAD 07:27
PROVIDERS: ATTEND Family Medicine
DX: M25.532 Pain in left wrist (principal)
CPT/HCPCS: 73221; G0463

== ENCOUNTER → 2021-03-06 | Outpatient (CLI) | payer MEDICARE, OTHER ==
[2021-03-06 13:48] LABS: BASO % 0.5 % (0.0-1.0); EOS # 0.2 10^3/uL (0.0-0.5); EOS % 2.7 % (0.0-3.0); HEMATOCRIT 47.8 % (42.0-52.0); HEMOGLOBIN 15.4 g/dl (13.5-17.5); LYMPH # 1.3 10^3/uL (1.5-5.0); LYMPH % 17.3 % (24.0-44.0); MEAN CORPUSCULAR HEMOGLOBIN 30.6 pg (27.0-33.0); MEAN CORPUSCULAR HGB CONC 32.2 g/dl (32.0-36.5); MONO # 0.7 10^3/uL (0.0-0.8); MONO % 9.7 % (2.0-8.0); NEUTROPHILS # 5.2 10^3/uL (1.5-8.5); NEUTROPHILS % 69.3 % (36.0-66.0); PLATELET COUNT, AUTOMATED 310 10^3/uL (150-450); RED BLOOD COUNT 5.03 10^6/uL (4.30-6.10); WHITE BLOOD COUNT 7.5 10^3/uL (4.0-10.0)
[2021-03-06 14:07] LABS: HEMOGLOBIN A1c 7.4 %
[2021-03-06 14:20] LABS: ALBUMIN 3.6 GM/DL (3.2-5.2); ALT/SGPT 42 U/L (12-78); BILIRUBIN,TOTAL 0.6 MG/DL (0.2-1.0); BLOOD UREA NITROGEN 12 MG/DL (7-18); CALCIUM LEVEL 9.5 MG/DL (8.8-10.2); CARBON DIOXIDE LEVEL 27 MEQ/L (21-32); CHLORIDE LEVEL 105 MEQ/L (98-107); CPK CREATINE PHOSPHOKINASE 79 U/L (39-308); CREATININE FOR GFR 1.04 MG/DL (0.70-1.30); GLOMERULAR FILTRATION RATE > 60.0 (>49); GLUCOSE, FASTING 198 MG/DL (70-100); POTASSIUM SERUM 4.6 MEQ/L (3.5-5.1); SODIUM LEVEL 138 MEQ/L (136-145); TOTAL PROTEIN 7.3 GM/DL (6.4-8.2)
== END ==
LOC: M PLALAB 10:32
PROVIDERS: ATTEND Physician Assistant Medical
DX: I10 Essential (primary) hypertension (principal); E11.65 Type 2 diabetes mellitus with hyperglycemia; E78.2 Mixed hyperlipidemia
CPT/HCPCS: 36415; 80053; 82550; 83036; 85025; G0463

== ENCOUNTER → 2021-07-17 | Outpatient (CLI) | payer MEDICARE, OTHER ==
[~2021-07-17] MED LIST changes: -LISI10TA15 PO; +LISI10TA24 PO
[2021-07-17 13:31] LABS: BASO # 0.1 10^3/uL (0.0-0.2); BASO % 0.6 % (0.0-1.0); EOS # 0.3 10^3/uL (0.0-0.5); EOS % 2.8 % (0.0-3.0); HEMATOCRIT 45.8 % (42.0-52.0); HEMOGLOBIN 15.1 g/dl (13.5-17.5); LYMPH # 1.7 10^3/uL (1.5-5.0); LYMPH % 16.4 % (24.0-44.0); MEAN CORPUSCULAR VOLUME 90.9 fl (80.0-96.0); MONO # 0.7 10^3/uL (0.0-0.8); MONO % 6.7 % (2.0-8.0); NEUTROPHILS # 7.5 10^3/uL (1.5-8.5); NEUTROPHILS % 73.1 % (36.0-66.0); PLATELET COUNT, AUTOMATED 318 10^3/uL (150-450); RED BLOOD COUNT 5.04 10^6/uL (4.30-6.10); WHITE BLOOD COUNT 10.2 10^3/uL (4.0-10.0)
[2021-07-17 14:02] LABS: ALBUMIN 3.8 GM/DL (3.2-5.2); ALT/SGPT 42 U/L (12-78); BILIRUBIN,TOTAL 0.7 MG/DL (0.2-1.0); BLOOD UREA NITROGEN 14 MG/DL (7-18); CALCIUM LEVEL 9.4 MG/DL (8.8-10.2); CARBON DIOXIDE LEVEL 25 MEQ/L (21-32); CHLORIDE LEVEL 99 MEQ/L (98-107); CHOLESTEROL LEVEL 95 MG/DL (<200); CHOLESTEROL RISK RATIO 3.518 (<5); CREATININE FOR GFR 1.09 MG/DL (0.70-1.30); GLOMERULAR FILTRATION RATE > 60.0 (>49); GLUCOSE, FASTING 451 MG/DL (70-100); HDL CHOLESTEROL 27 MG/DL (>40); LDL CHOLESTEROL 30 MG/DL (<100); NON-HDL-C 68 MG/DL; POTASSIUM SERUM 4.8 MEQ/L (3.5-5.1); SODIUM LEVEL 134 MEQ/L (136-145); TOTAL PROTEIN 7.3 GM/DL (6.4-8.2); TRIGLYCERIDES LEVEL 189 MG/DL (<150)
[2021-07-17 14:27] LABS: HEMOGLOBIN A1c 12.4 %
== END ==
LOC: M PLALAB 10:20
PROVIDERS: ATTEND Physician Assistant Medical
DX: E11.65 Type 2 diabetes mellitus with hyperglycemia (principal); E78.2 Mixed hyperlipidemia; I10 Essential (primary) hypertension; Z87.39 Personal history of other diseases of the musculoskeletal system and connective tissue; Z12.5 Encounter for screening for malignant neoplasm of prostate

== ENCOUNTER → 2021-08-18 | Outpatient (CLI) | payer MEDICARE, OTHER ==
[2021-08-18 13:55] LABS: HEMOGLOBIN A1c 10.3 %
== END ==
LOC: M PLALAB 11:31
PROVIDERS: ATTEND Physician Assistant Medical
DX: E11.65 Type 2 diabetes mellitus with hyperglycemia (principal)

== ENCOUNTER → 2022-05-11 | Outpatient (CLI) | payer MEDICARE, OTHER ==
[~2022-05-11] MED LIST changes: +CLOP75TA99 PO; -ISOS20TA PO; +ISOS20TA53 PO; -PLAV1TAB2 PO
[2022-05-11 14:58] LABS: BASO # 0.1 10^3/uL (0.0-0.2); BASO % 0.7 % (0.0-1.0); EOS # 0.3 10^3/uL (0.0-0.5); EOS % 2.5 % (0.0-3.0); HEMATOCRIT 49.9 % (42.0-52.0); HEMOGLOBIN 15.7 g/dl (13.5-17.5); LYMPH # 1.7 10^3/uL (1.5-5.0); LYMPH % 16.8 % (24.0-44.0); MEAN CORPUSCULAR HEMOGLOBIN 30.1 pg (27.0-33.0); MEAN CORPUSCULAR HGB CONC 31.5 g/dl (32.0-36.5); MEAN CORPUSCULAR VOLUME 95.6 fl (80.0-96.0); NEUTROPHILS # 7.1 10^3/uL (1.5-8.5); NEUTROPHILS % 69.7 % (36.0-66.0); PLATELET COUNT, AUTOMATED 400 10^3/uL (150-450); RED BLOOD COUNT 5.22 10^6/uL (4.30-6.10); WHITE BLOOD COUNT 10.2 10^3/uL (4.0-10.0)
[2022-05-11 15:21] LABS: ALBUMIN 3.7 G/DL (3.2-5.2); ALKALINE PHOSPHATASE 134 U/L (46-116); ALT/SGPT 37 U/L (7.0-40); AST/SGOT 42 U/L (<34); BILIRUBIN,TOTAL 0.6 MG/DL (0.3-1.2); BLOOD UREA NITROGEN 12 MG/DL (9-23); CALCIUM LEVEL 9.4 MG/DL (8.3-10.6); CARBON DIOXIDE LEVEL 27 MMOL/L (20-31); CHLORIDE LEVEL 101 MMOL/L (98-107); CHOLESTEROL LEVEL 86 MG/DL (<200); CHOLESTEROL RISK RATIO 2.85 (<5); CREATININE FOR GFR 0.76 MG/DL (0.70-1.30); GLOMERULAR FILTRATION RATE > 60.0 (>49); GLUCOSE, FASTING 264 MG/DL (74-106); HDL CHOLESTEROL 30.1 MG/DL (>40); LDL CHOLESTEROL 46.5 MG/DL (<100); NON-HDL-C 56 MG/DL; POTASSIUM SERUM 4.9 MMOL/L (3.5-5.1); SODIUM LEVEL 135 MMOL/L (136-145); TOTAL PROTEIN 7.4 G/DL (5.7-8.2); TRIGLYCERIDES LEVEL 47 MG/DL (<150)
[2022-05-11 16:41] LABS: HEMOGLOBIN A1c 7.7 % (4.0-6.0)
[2022-05-11 17:01] LABS: CREATININE, URINE 100.1 MG/DL
[2022-05-11 17:03] LABS: MAU/CREAT RATIO 18.9 MCG/MG (0.0-30.0)
== END ==
LOC: M PLALAB 10:36
PROVIDERS: ATTEND Physician Assistant Medical
DX: E11.65 Type 2 diabetes mellitus with hyperglycemia (principal); E78.2 Mixed hyperlipidemia; I10 Essential (primary) hypertension

== ENCOUNTER → 2022-05-25 | Outpatient (CLI) | payer MEDICARE, OTHER | LOC: M WHC 09:16 | PROVIDERS: ATTEND Physician Assistant Medical | DX: R79.89 Other specified abnormal findings of blood chemistry (principal); K76.0 Fatty (change of) liver, not elsewhere classified; N28.1 Cyst of kidney, acquired ==

== ENCOUNTER → 2022-05-25 | Outpatient (CLI) | payer MEDICARE, OTHER ==
[2022-05-25 13:50] LABS: INR 1.03; PROTHROMBIN TIME 13.7 SECONDS (12.5-14.5)
[2022-05-25 13:51] LABS: PARTIAL THROMBOPLASTIN TIME 28.9 SECONDS (24.8-34.2)
[2022-05-25 14:32] LABS: HEPATITIS B CORE ANTIBODY IGM NEGATIVE (NEGATIVE)
== END ==
LOC: M PLALAB 10:02
PROVIDERS: ATTEND Physician Assistant Medical
DX: R79.89 Other specified abnormal findings of blood chemistry (principal)

== ENCOUNTER → 2022-08-24 | Outpatient (CLI) | payer MEDICARE, OTHER ==
[2022-08-24 10:59] LABS: BLOOD UREA NITROGEN 11 MG/DL (9-23); CALCIUM LEVEL 8.5 MG/DL (8.3-10.6); CARBON DIOXIDE LEVEL 27 MMOL/L (20-31); CHLORIDE LEVEL 102 MMOL/L (98-107); CREATININE FOR GFR 0.79 MG/DL (0.70-1.30); GLOMERULAR FILTRATION RATE > 60.0 (>49); GLUCOSE, FASTING 186 MG/DL (74-106); POTASSIUM SERUM 4.3 MMOL/L (3.5-5.1); SODIUM LEVEL 136 MMOL/L (136-145)
[2022-08-24 14:13] LABS: CREATININE, URINE 135.3 MG/DL
[2022-08-24 14:15] LABS: MAU/CREAT RATIO 5.1 MCG/MG (0.0-30.0)
== END ==
LOC: M PLALAB 08:49
PROVIDERS: ATTEND Internal Medicine Cardiovascular Disease
DX: I10 Essential (primary) hypertension (principal)

== ENCOUNTER → 2022-09-21 | Outpatient (CLI) | payer MEDICARE, OTHER ==
[2022-09-21 16:40] LABS: BASO # 0.1 10^3/uL (0.0-0.2); BASO % 0.8 % (0.0-1.0); EOS # 0.3 10^3/uL (0.0-0.5); EOS % 3.6 % (0.0-3.0); HEMATOCRIT 42.5 % (42.0-52.0); HEMOGLOBIN 13.5 g/dl (13.5-17.5); LYMPH # 1.5 10^3/uL (1.5-5.0); LYMPH % 16.1 % (24.0-44.0); MEAN CORPUSCULAR HEMOGLOBIN 30.6 pg (27.0-33.0); MEAN CORPUSCULAR HGB CONC 31.8 g/dl (32.0-36.5); MEAN CORPUSCULAR VOLUME 96.4 fl (80.0-96.0); MONO % 10.1 % (2.0-8.0); NEUTROPHILS # 6.6 10^3/uL (1.5-8.5); NEUTROPHILS % 68.9 % (36.0-66.0); PLATELET COUNT, AUTOMATED 363 10^3/uL (150-450); RED BLOOD COUNT 4.41 10^6/uL (4.30-6.10); WHITE BLOOD COUNT 9.6 10^3/uL (4.0-10.0)
[2022-09-21 17:07] LABS: ALBUMIN 3.6 G/DL (3.2-5.2); ALKALINE PHOSPHATASE 79 U/L (46-116); ALT/SGPT 36 U/L (7.0-40); AST/SGOT 44 U/L (<34); BILIRUBIN,TOTAL 0.9 MG/DL (0.3-1.2); BLOOD UREA NITROGEN 15 MG/DL (9-23); CALCIUM LEVEL 8.8 MG/DL (8.3-10.6); CARBON DIOXIDE LEVEL 25 MMOL/L (20-31); CHLORIDE LEVEL 103 MMOL/L (98-107); CHOLESTEROL LEVEL 84 MG/DL (<200); CHOLESTEROL RISK RATIO 2.33 (<5); CREATININE FOR GFR 0.94 MG/DL (0.70-1.30); GLOMERULAR FILTRATION RATE > 60.0 (>49); GLUCOSE, FASTING 138 MG/DL (74-106); LDL CHOLESTEROL 31.6 MG/DL (<100); SODIUM LEVEL 137 MMOL/L (136-145); TOTAL PROTEIN 7.3 G/DL (5.7-8.2); TRIGLYCERIDES LEVEL 82 MG/DL (<150)
[2022-09-21 17:33] LABS: HEMOGLOBIN A1c 7.7 % (4.0-6.0)
== END ==
LOC: M PLALAB 10:37
PROVIDERS: ATTEND Physician Assistant Medical
DX: E11.65 Type 2 diabetes mellitus with hyperglycemia (principal); E78.2 Mixed hyperlipidemia; I10 Essential (primary) hypertension

== ENCOUNTER → 2022-09-21 | Outpatient (REF) | payer MEDICARE, OTHER | LOC: M SFHCPLAZ 10:24 | PROVIDERS: ATTEND Physician Assistant Medical | DX: E11.65 Type 2 diabetes mellitus with hyperglycemia (principal); E78.2 Mixed hyperlipidemia; I10 Essential (primary) hypertension ==

== ENCOUNTER → 2023-05-26 | Outpatient (CLI) | payer MEDICARE, OTHER ==
[~2023-05-26] MED LIST changes: +GLIP5TAB17 PO; -GLIP5TAB8 PO
[2023-05-26 16:05] LABS: BASO # 0.1 10^3/uL (0.0-0.2); BASO % 0.6 % (0.0-1.0); EOS # 0.4 10^3/uL (0.0-0.5); EOS % 4.9 % (0.0-3.0); HEMATOCRIT 48.9 % (42.0-52.0); HEMOGLOBIN 15.6 g/dl (13.5-17.5); LYMPH # 1.2 10^3/uL (1.5-5.0); LYMPH % 13.9 % (24.0-44.0); MEAN CORPUSCULAR HEMOGLOBIN 30.4 pg (27.0-33.0); MEAN CORPUSCULAR HGB CONC 31.9 g/dl (32.0-36.5); MEAN CORPUSCULAR VOLUME 95.1 fl (80.0-96.0); MONO # 0.8 10^3/uL (0.0-0.8); MONO % 9.4 % (2.0-8.0); NEUTROPHILS # 6.1 10^3/uL (1.5-8.5); NEUTROPHILS % 70.8 % (36.0-66.0); PLATELET COUNT, AUTOMATED 357 10^3/uL (150-450); RED BLOOD COUNT 5.14 10^6/uL (4.30-6.10); WHITE BLOOD COUNT 8.6 10^3/uL (4.0-10.0)
[2023-05-26 16:27] LABS: ALBUMIN 3.8 G/DL (3.2-5.2); ALKALINE PHOSPHATASE 96 U/L (46-116); ALT/SGPT 50 U/L (7.0-40); AST/SGOT 44 U/L (<34); BLOOD UREA NITROGEN 13 MG/DL (9-23); CALCIUM LEVEL 10.7 MG/DL (8.3-10.6); CARBON DIOXIDE LEVEL 28 MMOL/L (20-31); CHLORIDE LEVEL 104 MMOL/L (98-107); CREATININE FOR GFR 0.88 MG/DL (0.70-1.30); GLOMERULAR FILTRATION RATE > 60.0 (>49); GLUCOSE, FASTING 168 MG/DL (74-106); POTASSIUM SERUM 4.8 MMOL/L (3.5-5.1); SODIUM LEVEL 140 MMOL/L (136-145); TOTAL PROTEIN 7.4 G/DL (5.7-8.2)
[2023-05-26 16:52] LABS: HEMOGLOBIN A1c 7.9 % (4.0-6.0)
== END ==
LOC: M PLALAB 13:53
PROVIDERS: ATTEND Physician Assistant Medical
DX: E11.65 Type 2 diabetes mellitus with hyperglycemia (principal); I10 Essential (primary) hypertension

== ENCOUNTER → 2023-12-07 | Outpatient (CLI) | payer MEDICARE, OTHER ==
[2023-12-07 10:45] LABS: BASO # 0.1 10^3/uL (0.0-0.2); EOS # 0.2 10^3/uL (0.0-0.5); EOS % 2.9 % (0.0-3.0); HEMATOCRIT 51.1 % (42.0-52.0); HEMOGLOBIN 16.8 g/dl (13.5-17.5); LYMPH # 1.4 10^3/uL (1.5-5.0); LYMPH % 18.9 % (24.0-44.0); MEAN CORPUSCULAR HEMOGLOBIN 30.4 pg (27.0-33.0); MEAN CORPUSCULAR HGB CONC 32.9 g/dl (32.0-36.5); MEAN CORPUSCULAR VOLUME 92.6 fl (80.0-96.0); MONO # 0.8 10^3/uL (0.0-0.8); MONO % 11.4 % (2.0-8.0); NEUTROPHILS # 4.8 10^3/uL (1.5-8.5); NEUTROPHILS % 65.5 % (36.0-66.0); PLATELET COUNT, AUTOMATED 347 10^3/uL (150-450); RED BLOOD COUNT 5.52 10^6/uL (4.30-6.10); WHITE BLOOD COUNT 7.4 10^3/uL (4.0-10.0)
[2023-12-07 10:51] LABS: ALBUMIN 4.1 G/DL (3.2-5.2); ALKALINE PHOSPHATASE 96 U/L (46-116); ALT/SGPT 41 U/L (7.0-40); AST/SGOT 28 U/L (<34); BILIRUBIN,TOTAL 0.9 MG/DL (0.3-1.2); BLOOD UREA NITROGEN 10 MG/DL (9-23); CALCIUM LEVEL 9.7 MG/DL (8.3-10.6); CARBON DIOXIDE LEVEL 27 MMOL/L (20-31); CHLORIDE LEVEL 103 MMOL/L (98-107); CREATININE FOR GFR 0.81 MG/DL (0.70-1.30); GLOMERULAR FILTRATION RATE > 60.0 (>49); GLUCOSE, FASTING 109 MG/DL (74-106); POTASSIUM SERUM 4.2 MMOL/L (3.5-5.1); PSA SCREENING 0.49 NG/ML (< 4.00); SODIUM LEVEL 138 MMOL/L (136-145); TOTAL PROTEIN 7.7 G/DL (5.7-8.2)
[2023-12-07 10:53] LABS: CPK CREATINE PHOSPHOKINASE 317 U/L (46-171)
[2023-12-07 10:56] LABS: HEMOGLOBIN A1c 6.8 % (4.0-6.0)
== END ==
LOC: M PLALAB 07:45
PROVIDERS: ATTEND Physician Assistant Medical
DX: Z12.5 Encounter for screening for malignant neoplasm of prostate (principal); I10 Essential (primary) hypertension; E11.65 Type 2 diabetes mellitus with hyperglycemia; E78.2 Mixed hyperlipidemia
CPT/HCPCS: 36415; 80053; 82550; 83036; 85025; G0103

== ENCOUNTER → 2024-05-09 | Outpatient (CLI) | payer MEDICARE, OTHER ==
[~2024-05-09] MED LIST changes: -ADV100INH INH; +ADVA1AER8 INH; +ATOR-398 PO; -CYCL5TAB PO; +CYCL5TAB4 PO; -LIPI80TA PO; +METF-1156 PO; -METF-817 PO
[2024-05-09 10:29] LABS: BASO # 0.1 10^3/uL (0.0-0.2); BASO % 0.9 % (0.0-1.0); EOS # 0.3 10^3/uL (0.0-0.5); EOS % 2.9 % (0.0-3.0); HEMATOCRIT 50.5 % (42.0-52.0); HEMOGLOBIN 15.9 g/dl (13.5-17.5); LYMPH # 1.3 10^3/uL (1.5-5.0); LYMPH % 14.5 % (24.0-44.0); MEAN CORPUSCULAR HGB CONC 31.5 g/dl (32.0-36.5); MONO # 0.8 10^3/uL (0.0-0.8); MONO % 9.2 % (2.0-8.0); NEUTROPHILS # 6.2 10^3/uL (1.5-8.5); NEUTROPHILS % 72.2 % (36.0-66.0); PLATELET COUNT, AUTOMATED 413 10^3/uL (150-450); RED BLOOD COUNT 5.49 10^6/uL (4.30-6.10); WHITE BLOOD COUNT 8.6 10^3/uL (4.0-10.0)
[2024-05-09 10:38] LABS: ALBUMIN 3.7 G/DL (3.2-5.2); ALKALINE PHOSPHATASE 91 U/L (40-129); ALT/SGPT 35 U/L (7.0-40); AST/SGOT 20 U/L (<34); BILIRUBIN,TOTAL 0.7 MG/DL (0.3-1.2); BLOOD UREA NITROGEN 10 MG/DL (9-23); CALCIUM LEVEL 10.1 MG/DL (8.3-10.6); CARBON DIOXIDE LEVEL 28 MMOL/L (20-31); CHLORIDE LEVEL 105 MMOL/L (98-107); CHOLESTEROL LEVEL 109 MG/DL (<200); CHOLESTEROL RISK RATIO 3.17 (<5); CREATININE FOR GFR 0.88 MG/DL (0.70-1.30); GLOMERULAR FILTRATION RATE > 60.0 (>49); GLUCOSE, FASTING 183 MG/DL (74-106); HDL CHOLESTEROL 34.3 MG/DL (>40); LDL CHOLESTEROL 61.7 MG/DL (<100); NON-HDL-C 74.7 MG/DL; POTASSIUM SERUM 4.8 MMOL/L (3.5-5.1); SODIUM LEVEL 140 MMOL/L (136-145); TOTAL PROTEIN 7.4 G/DL (5.7-8.2); TRIGLYCERIDES LEVEL 65 MG/DL (<150)
== END ==
LOC: M PLALAB 08:39
PROVIDERS: ATTEND Registered Nurse
DX: I25.10 Atherosclerotic heart disease of native coronary artery without angina pectoris (principal)

== ENCOUNTER → 2024-06-08 | Outpatient (CLI) | payer MEDICARE, OTHER ==
[2024-06-08 10:47] LABS: HEMOGLOBIN A1c 7.2 % (4.0-6.0)
== END ==
LOC: M PLALAB 08:09
PROVIDERS: ATTEND Physician Assistant Medical
DX: Z12.5 Encounter for screening for malignant neoplasm of prostate (principal)
CPT/HCPCS: 36415; 83036; G0103

== ENCOUNTER → 2024-08-03 | Outpatient (CLI) | payer MEDICARE, OTHER ==
[~2024-08-03] MED LIST changes: -ISOS20TA53 PO; +ISOS20TA72 PO
== END ==
LOC: M CARPUL 16:00
PROVIDERS: ATTEND Registered Nurse
DX: I77.810 Thoracic aortic ectasia (principal)

== ENCOUNTER → 2025-01-18 | Outpatient (CLI) | payer MEDICARE, OTHER ==
[~2025-01-18] MED LIST changes: +GLIP-318 PO; -GLIP5TAB20 PO
[2025-01-18 14:12] LABS: BASO # 0.1 10^3/uL (0.0-0.2); BASO % 1.2 % (0.0-1.0); EOS # 0.5 10^3/uL (0.0-0.5); EOS % 6.5 % (0.0-3.0); LYMPH # 1.3 10^3/uL (1.5-5.0); LYMPH % 16.8 % (24.0-44.0); MONO # 0.9 10^3/uL (0.0-0.8); MONO % 11.1 % (2.0-8.0); NEUTROPHILS # 4.9 10^3/uL (1.5-8.5); NEUTROPHILS % 64.1 % (36.0-66.0); PLATELET COUNT, AUTOMATED 428 10^3/uL (150-450)
[2025-01-18 14:16] LABS: ALT/SGPT 23 U/L (7.0-40); AST/SGOT 24 U/L (<34); CALCIUM LEVEL 9.6 MG/DL (8.3-10.6); CARBON DIOXIDE LEVEL 27 MMOL/L (20-31); CHLORIDE LEVEL 101 MMOL/L (98-107); CREATININE FOR GFR 0.83 MG/DL (0.70-1.30); GLOMERULAR FILTRATION RATE > 90.0 (>49); POTASSIUM SERUM 4.3 MMOL/L (3.5-5.1); SODIUM LEVEL 140 MMOL/L (136-145)
[2025-01-18 14:45] LABS: ESTIMATED AVERAGE GLUCOSE 266.0 MG/DL (60-110)
== END ==
LOC: M PLALAB 09:56
PROVIDERS: ATTEND Physician Assistant Medical
DX: I95.9 Hypotension, unspecified (principal); I10 Essential (primary) hypertension; E11.65 Type 2 diabetes mellitus with hyperglycemia; R79.89 Other specified abnormal findings of blood chemistry; J00 Acute nasopharyngitis [common cold]

== ENCOUNTER 2025-01-20 02:59 | Emergency (ER) | payer MEDICARE, OTHER ==
[~2025-01-20] VITALS: Ht 162.6 cm; Wt 77.3 kg
[2025-01-20] MEDS: ASPIRIN 81 MG CHEWABLE TABLET PO ONE (03:55)
[2025-01-20 03:56] LABS: BASO # 0.1 10^3/uL (0.0-0.2); BASO % 0.7 % (0.0-1.0); EOS # 0.5 10^3/uL (0.0-0.5); EOS % 4.5 % (0.0-3.0); LYMPH # 1.5 10^3/uL (1.5-5.0); LYMPH % 13.5 % (24.0-44.0); MONO # 1.2 10^3/uL (0.0-0.8); MONO % 10.5 % (2.0-8.0); NEUTROPHILS # 7.8 10^3/uL (1.5-8.5); NEUTROPHILS % 70.5 % (36.0-66.0); PLATELET COUNT, AUTOMATED 432 10^3/uL (150-450)
[2025-01-20] MEDS: MORPHINE 4 MG/ML 1 ML VIAL IV PRN (03:56)
[2025-01-20] MEDS: ONDANSETRON 4MG 2ML VIAL IV ONE (03:56)
[2025-01-20 04:11] LABS: CK-MB VALUE MASS 2.0 NG/ML (<3.6)
[2025-01-20 04:14] LABS: CALCIUM LEVEL 9.2 MG/DL (8.3-10.6); CARBON DIOXIDE LEVEL 21 MMOL/L (20-31); CHLORIDE LEVEL 100 MMOL/L (98-107); CPK CREATINE PHOSPHOKINASE 119 U/L (46-171); CREATININE FOR GFR 0.90 MG/DL (0.70-1.30); GLOMERULAR FILTRATION RATE > 90.0 (>49); MB/CK RELATIVE INDEX 1.68 (< OR =4); POTASSIUM SERUM 4.9 MMOL/L (3.5-5.1); SODIUM LEVEL 135 MMOL/L (136-145)
[2025-01-20 04:50] LABS: INR 1.02
[2025-01-20] MEDS ORDERED: ISOVUE-370 76% 100 ML VIAL As Ordered ONE (04:51)
[2025-01-20] MEDS: PANTOPRAZOLE 40MG VIAL IV ONE (05:46)
[2025-01-20] MEDS: NITROGLYCERIN 0.4 MG SUBL TABLET SL PRN (05:46)
[2025-01-20 06:32] LABS: CK-MB VALUE MASS 2.8 NG/ML (<3.6)
[2025-01-20 06:34] LABS: CPK CREATINE PHOSPHOKINASE 116.0 U/L (46-171); MB/CK RELATIVE INDEX 2.41 (< OR =4)
[2025-01-20] MEDS: IPRATROPIUM 0.5 MG/ALBUTEROL 2.5 MG INH SOL UD 3 ML NEB ONE (07:12)
[2025-01-20] MEDS: NITROGLYCERIN/D5W 100MCG/ML 25 MG in IV 1 EA IV SCH (07:44)
[2025-01-20] MEDS: HumuLIN R (REGULAR) INSULIN (NovoLIN R) **100 U/ML** PER UNIT IV ONE (07:44)
[2025-01-20 08:21] LABS: ABG BASE EXCESS -3.8 (-2.0-2.0); ABG HCO3 20.9 MMOL/L (22.0-26.0); ABG O2 SATURATION 93.6 % (95.0-99.0); ABG PARTIAL PRESSURE CO2 37.5 mmHg (35.0-45.0); ABG PARTIAL PRESSURE O2 70.9 mmHg (75.0-100.0); ABG STANDARD HCO3 21.2 MMOL/L. (22.0-26.0); ABG TOTAL CO2 22.1 MMOL/L (23.0-31.0); ABG pH (ARTERIAL) 7.365 UNITS (7.350-7.450)
[2025-01-20 09:25] LABS: CK-MB VALUE MASS 21.5 NG/ML (<3.6)
[2025-01-20 09:30] VITALS: BP 131/71; TEMP 97.7; O2SAT 95
[2025-01-20 09:43] LABS: CPK CREATINE PHOSPHOKINASE 531.0 U/L (46-171); MB/CK RELATIVE INDEX 4.04 (< OR =4)
== END 2025-01-20 09:44 | disposition short-term general hospital (02) ==
LOC: M ED 02:59
DX: I21.4 Non-ST elevation (NSTEMI) myocardial infarction (principal); I77.810 Thoracic aortic ectasia; I50.9 Heart failure, unspecified; I51.7 Cardiomegaly; N28.1 Cyst of kidney, acquired; J90 Pleural effusion, not elsewhere classified; R91.8 Other nonspecific abnormal finding of lung field; R00.0 Tachycardia, unspecified; I45.81 Long QT syndrome; I44.4 Left anterior fascicular block; I25.2 Old myocardial infarction; I10 Essential (primary) hypertension; E78.5 Hyperlipidemia, unspecified; F10.10 Alcohol abuse, uncomplicated; Z86.79 Personal history of other diseases of the circulatory system; Z88.1 Allergy status to other antibiotic agents; Z79.52 Long term (current) use of systemic steroids; Z79.02 Long term (current) use of antithrombotics/antiplatelets; Z79.82 Long term (current) use of aspirin; Z79.4 Long term (current) use of insulin; Z79.899 Other long term (current) drug therapy
CPT/HCPCS: 36600; 71045; 71275; 80048; 82550; 82553; 82803; 83880; 84484; 85025; 85610; 85730; 93005; 93041; 94640; 94760; 96374; 96375; 96376; 99285; J1815; J2305; J2405; J2470; Q9967

== ENCOUNTER 2025-02-25 18:58 | Emergency (ER) | payer MEDICARE, OTHER ==
[~2025-02-25] VITALS: Ht 162.6 cm; Wt 76.8 kg
[2025-02-25] MEDS ORDERED: ADENOSINE 6 MG/2 ML INJECTION ONE (18:59)
[2025-02-25] MEDS ORDERED: SODIUM BICARBONATE 8.4% INJ 50ML SYRINGE ONE (18:59)
[2025-02-25] MEDS ORDERED: EPINEPHrine 1 MG/10 ML SYRINGE 1.5IN ONE (18:59)
[2025-02-25] MEDS ORDERED: MAGNESIUM SULFATE ONE (18:59)
[2025-02-25] MEDS ORDERED: NALOXONE INJ 0.4 MG/1 ML VIAL ONE (18:59)
[2025-02-25] MEDS ORDERED: AMIODARONE 150 MG/3 ML VIAL ONE (18:59)
[2025-02-25] MEDS ORDERED: CALCIUM CHLORIDE 10% 1 GM/10 ML SYR ONE (18:59)
[2025-02-25] MEDS ORDERED: FURO40TA2 PO (19:16)
[2025-02-25] MEDS ORDERED: ENTR1TAB PO (19:16)
[2025-02-25] MEDS ORDERED: PANT20TA6 PO (19:16)
[2025-02-25] MEDS ORDERED: EZET10TA57 PO (19:16)
[2025-02-25] MEDS ORDERED: CARV25TA PO (19:16)
[2025-02-25] MEDS ORDERED: JARD1TAB PO (19:16)
[2025-02-25] MEDS ORDERED: ISOS1TAB36 PO (19:16)
[2025-02-25] MEDS: LEVALBUTEROL 1.25 MG 0.5ML CONCENTRATE NEB NEB ONE (19:45)
[2025-02-25 19:48] LABS: BASO # 0.1 10^3/uL (0.0-0.2); BASO % 0.9 % (0.0-1.0); EOS # 0.1 10^3/uL (0.0-0.5); EOS % 1.4 % (0.0-3.0); LYMPH # 1.1 10^3/uL (1.5-5.0); LYMPH % 10.9 % (24.0-44.0); MONO # 0.9 10^3/uL (0.0-0.8); MONO % 8.8 % (2.0-8.0); NEUTROPHILS # 8.0 10^3/uL (1.5-8.5); NEUTROPHILS % 77.5 % (36.0-66.0); PLATELET COUNT, AUTOMATED 400 10^3/uL (150-450)
[2025-02-25 20:10] LABS: CK-MB VALUE MASS 3.9 NG/ML (<3.6)
[2025-02-25 20:13] VITALS: TEMP 97
[2025-02-25 20:18] LABS: ALT/SGPT 18.0 U/L (7.0-40); AST/SGOT 30.0 U/L (<34); CALCIUM LEVEL 8.7 MG/DL (8.3-10.6); CARBON DIOXIDE LEVEL 23.0 MMOL/L (20-31); CHLORIDE LEVEL 97.0 MMOL/L (98-107); CPK CREATINE PHOSPHOKINASE 102.0 U/L (46-171); CREATININE FOR GFR 1.12 MG/DL (0.70-1.30); GLOMERULAR FILTRATION RATE 72.5 (>49); MB/CK RELATIVE INDEX 3.82 (< OR =4); POTASSIUM SERUM 5.4 MMOL/L (3.5-5.1); SODIUM LEVEL 129.0 MMOL/L (136-145)
[2025-02-25] MEDS ORDERED: HEPARIN DRIP 25,000 UNITS in IV 1 EA IV SCH (20:20)
[2025-02-25] MEDS ORDERED: HEPARIN SOD 5000 UNITS/ML 1 ML VIAL/SYRINGE IV PRN (20:20)
[2025-02-25] MEDS: KETOROLAC 30 MG/ML 1 ML VIAL IV ONE (20:22)
[2025-02-25] MEDS ORDERED: ISOVUE-370 76% 100 ML VIAL As Ordered ONE (20:26)
[2025-02-25] MEDS: HumuLIN R (REGULAR) INSULIN (NovoLIN R) **100 U/ML** PER UNIT IV ONE (20:37)
[2025-02-25 20:51] LABS: PLATELET COUNT, AUTOMATED 387 10^3/uL (150-450)
[2025-02-25 21:13] LABS: CK-MB VALUE MASS 3.8 NG/ML (<3.6)
[2025-02-25] MEDS: diphenhydrAMINE 50 MG/ML VIAL IV ONE (21:13)
[2025-02-25] MEDS: ONDANSETRON 4MG/2ML VIAL IV ONE (21:13)
[2025-02-25] MEDS: FAMOTIDINE 20 MG/2 ML VIAL IVP ONE (21:13)
[2025-02-25 21:20] LABS: CPK CREATINE PHOSPHOKINASE 97.0 U/L (46-171); MB/CK RELATIVE INDEX 3.91 (< OR =4)
[2025-02-25] MEDS: HEPARIN DRIP 25,000 UNITS in IV 1 EA IV SCH (21:52)
[2025-02-26 00:17] LABS: CK-MB VALUE MASS 3.5 NG/ML (<3.6)
[2025-02-26 00:22] LABS: CALCIUM LEVEL 8.5 MG/DL (8.3-10.6); CARBON DIOXIDE LEVEL 17.0 MMOL/L (20-31); CHLORIDE LEVEL 100.0 MMOL/L (98-107); CPK CREATINE PHOSPHOKINASE 102.0 U/L (46-171); CREATININE FOR GFR 1.11 MG/DL (0.70-1.30); GLOMERULAR FILTRATION RATE 73.2 (>49); MB/CK RELATIVE INDEX 3.43 (< OR =4); POTASSIUM SERUM 5.0 MMOL/L (3.5-5.1); SODIUM LEVEL 131.0 MMOL/L (136-145)
[2025-02-26] MEDS ORDERED: MORPHINE 4 MG/ML 1 ML VIAL IV PRN (01:45)
[2025-02-26] MEDS: HumuLIN R (REGULAR) INSULIN (NovoLIN R) **100 U/ML** PER UNIT IV ONE (02:05)
[2025-02-26] MEDS: NS 500 ML IV ONE (02:15)
[2025-02-26] MEDS ORDERED: ROCURONIUM BROMIDE 50MG/5ML VIAL IV SCH (02:40)
[2025-02-26] MEDS: ETOMIDATE 20 MG/10 ML VIAL IV STA (02:44)
[2025-02-26] MEDS ORDERED: MIDAZOLAM 100MG/100ML-0.9%NACL 100 MG in IV 1 EA IV SCH (02:50)
[2025-02-26] MEDS ORDERED: MAGNESIUM SULFATE IN WATER 2 GM in IV 1 EA IV STA ×2 (02:52→03:11)
[2025-02-26] MEDS ORDERED: CALCIUM GLUCONATE 1,000 MG in DEXTROSE 5% (D5W) MINI-BAG PLU 100 ML IV STA ×2 (02:54→02:59)
[2025-02-26] MEDS ORDERED: SODIUM BICARBONATE 8.4% INJ 50ML SYRINGE IV STA (02:54)
[2025-02-26] MEDS ORDERED: EPINEPHrine INJ 1 MG/ML 1ML AMP IV ONE ×2 (02:55→03:00)
[2025-02-26 03:05] VITALS: BP 152/65
[2025-02-26] MEDS ORDERED: EPINEPHrine INJ 1 MG/ML 1ML AMP IV STA (03:08)
[2025-02-26 03:13] VITALS: O2SAT 100
== END 2025-02-26 06:00 | disposition expired ==
LOC: M ED 18:58
DX: I21.4 Non-ST elevation (NSTEMI) myocardial infarction (principal); I50.9 Heart failure, unspecified; J91.8 Pleural effusion in other conditions classified elsewhere; E11.65 Type 2 diabetes mellitus with hyperglycemia; R91.8 Other nonspecific abnormal finding of lung field; R00.0 Tachycardia, unspecified; I45.81 Long QT syndrome; I10 Essential (primary) hypertension; J44.9 Chronic obstructive pulmonary disease, unspecified; E78.5 Hyperlipidemia, unspecified; I25.2 Old myocardial infarction; Z86.79 Personal history of other diseases of the circulatory system; Z90.89 Acquired absence of other organs; Z88.1 Allergy status to other antibiotic agents; Z87.891 Personal history of nicotine dependence; Z79.52 Long term (current) use of systemic steroids; Z79.4 Long term (current) use of insulin; Z79.02 Long term (current) use of antithrombotics/antiplatelets; Z79.82 Long term (current) use of aspirin; Z79.899 Other long term (current) drug therapy
CPT/HCPCS: 31500; 71045; 71275; 80048; 80076; 82550; 82553; 83880; 84484; 85025; 85027; 85730; 87486; 87581; 87633; 87798; 92950; 93005; 96365; 96366; 96375; 99291; 99292; J0153; J0168; J0282; J0618; J1200; J1308; J1815; J1885; J2312; J2405; J3475; Q9967